=== PATIENT | female | born 1995 | race Caucasian/White ===

== ENCOUNTER 2016-12-03 10:18 | Emergency (ER) | payer OTHER ==
[~2016-12-03] VITALS: Ht 165.1 cm; Wt 75.5 kg
[~2016-12-03 10:18] MED LIST: IRON1TAB78 PO; PNV1TABL43 PO
[2016-12-03 10:21] VITALS: Ht 165.1 cm; Wt 75.5 kg
[2016-12-03] MEDS ORDERED: ONDANSETRON 4 MG INJ IV STA (10:58)
[2016-12-03] MEDS ORDERED: SOD CHLORIDE 0.9% 1,000 ML IV STA (10:58)
[2016-12-03] MEDS ORDERED: KETOROLAC 30 MG INJ IV STA (10:58)
[2016-12-03 11:38] LABS: ADD SCAN DIFF NO
[2016-12-03 11:39] LABS: BASOPHILS % 0.1 % (0.0-2.0); HEMATOCRIT 38.4 % (37.0-47.0); HEMOGLOBIN 12.7 g/dl (12.0-16.0); LYMPHOCYTES # 0.8 10^3/ul (0.8-2.9); LYMPHOCYTES % 7.6 % (15.0-51.0); MEAN CORPUSCULAR HEMOGLOBIN 29.3 pg (29.0-33.0); MEAN CORPUSCULAR HGB CONC 33.1 g/dl (32.0-37.0); MEAN CORPUSCULAR VOLUME 88.7 fl (82.0-101.0); MEAN PLATELET VOLUME 9.7 fl (7.4-10.4); MONOCYTE # 0.4 10^3/ul (0.3-0.9); MONOCYTES % 3.4 % (0.0-11.0); NEUTROPHIL # 9.3 10^3/ul (1.6-7.5); NEUTROPHILS % 88.5 % (39.0-77.0); PLATELET COUNT 296 10^3/UL (140-415); RED BLOOD COUNT 4.33 10^6/ul (4.20-5.40); WHITE BLOOD COUNT 10.5 10^3/ul (4.8-10.8)
[2016-12-03 11:49] LABS: ADD UMIC YES; URINE BILIRUBIN (Dip) NEGATIVE (NEGATIVE); URINE BLOOD (Dip) TRACE (NEGATIVE); URINE COLOR LT. YELLOW (YELLOW); URINE GLUCOSE (Dip) NEGATIVE (NEGATIVE); URINE KETONES (Dip) NEGATIVE (NEGATIVE); URINE LEUKOCYTE ESTERASE (Dip) NEGATIVE (NEGATIVE); URINE NITRITE (Dip) NEGATIVE (NEGATIVE); URINE TOTAL PROTEIN (Dip) NEGATIVE (NEGATIVE); URINE UROBILINOGEN (Dip) 0.2 E.U./dL (0.1-1.0)
[2016-12-03 11:52] LABS: ALBUMIN 4.5 g/dl (3.3-4.9)
[2016-12-03 11:53] LABS: POTASSIUM 3.3 mmol/L (3.5-5.1)
[2016-12-03 11:55] LABS: ALBUMIN/GLOBULIN RATIO 1.32; BILIRUBIN,INDIRECT 2.1 mg/dl (0-1.1); BILIRUBIN,TOTAL 2.1 mg/dl (0.2-1.3); CALCIUM 9.1 mg/dl (8.4-10.2); CREATININE 0.63 mg/dl (0.44-1.00); TOTAL PROTEIN 7.9 g/dl (6.1-8.1)
[2016-12-03 12:10] LABS: SQUAMOUS EPITHELIAL CELL,UR FEW; URINE RBCS 0-2 /HPF (0)
--- NOTE | 2016-12-03 12:28 | RADRPT ---
PROCEDURE: CT Abdomen and pelvis without contrast. CLINICAL INDICATION: Abdominal pain nausea and diarrhea. Fever for 1 day. TECHNIQUE: CT scan of the abdomen and pelvis with contrast was performed on a multidetector high-r esolution CT scan. . Coronal and sagittal reformatted images were obtained from the axial source i mages. Standard CT scan of the abdomen pelvis without contrast protocols were performed. The total exam CTDI equals 10.69 mGy and the total exam DLP equals 603.42 mGy-cm. One or more of the following dose reduction techniques were used: - Automated exposure control. - Adjustment of the mA and/or kV according to patient size. Use of iterative reconstruction technique. COMPARISON: None. FINDINGS: The liver is normal limits in size with diffuse mild inhomogeneous fatty infiltration. No focal hep atic lesions. The spleen pancreas adrenal glands and kidneys are normal in size configuration witho ut focal lesions. Negative for calcified renal calculi or hydronephrosis bilaterally. The gallblad clare is unremarkable and there is no evidence biliary ductal dilation. Urinary bladder is unremarkab le. The uterus and adnexa are unremarkable. The appendix is not visualized and there is no CT evidence of appendicitis. The stomach, small andrea l and large bowel are unremarkable. There is trace free fluid in the cul-de-sac. No other abdomina l or pelvic free fluid, free air or abscesses. No evidence of abdominopelvic lymphadenopathy. The aorta is unremarkable. The lung bases are unremarkable. There are no acute osseous findings are os teoblastic/osteolytic lesions. IMPRESSION: 1. Trace free fluid in the cul-de-sac with no other abdominal free fluid, free air, abscesses or ly mphadenopathy. 2. No evidence of calcified urinary calculi or obstructive uropathy. 3. Nonvisualization the appendix though there is no CT evidence of appendicitis or diverticulitis. 4. Hepatic fatty infiltration. RPTAT:AAJJ Physician Mayte Date Time Electronically viewed and signed by Physician Mayte on 12/03/2016 12:28 BM/
[2016-12-03] MEDS ORDERED: DICY10CA60 PO (13:05)
[2016-12-03] MEDS ORDERED: ACET500C5 PO (13:06)
--- NOTE | 2016-12-03 13:17 | ERD ---
ER Documentation Chief Complaint Date/Time DATE: 12/03/16 TIME: 13:13 Chief Complaint BACK PAIN,NAUSEA,ABDOMINAL PAIN,DIARRHEA. HPI Patient is a 21-year-old female past medical history of appendectomy who presents to the emergency department with nausea, diarrhea, abdominal pain and lower back pain. Patient states her symptoms started 1 day ago. Patient states pain originates in her lower back and radiates to her pelvic region. Patient describes the pain to be episodic. Patient states it is difficult for her to find position of comfort states that the pain is "crampy" in nature. Patient does report tactile fevers and chills. Patient denies taking any antipyretics. Patient does admit to nausea and vomiting. Patient also reports diarrhea. Patient denies any recent travel. Patient denies any recent antibiotic use. Patient denies any sick contacts. ROS All systems reviewed and are negative except as per history of present illness. Medications Home Meds Active Scripts Acetaminophen* (Tylophen*) 500 Mg Capsule, 1 CAP PO Q6H Y for PAIN AND OR ELEVATED TEMP, #20 CAP Prov:ESTEBAN FIGUEREDO PA-C 12/03/16 Dicyclomine Hcl* (Bentyl*) 10 Mg Capsule, 10 MG PO QID, #20 CAP Prov:ESTEBAN FIGUEREDO PA-C 12/03/16 Reported Medications Iron,Carbonyl/Vit C/Vit B12/Fa (IRON 100 PLUS TABLET) 1 Each Tablet, 1 EACH PO DAILY, #1 04/02/13 Vit/Fe Fumarate/Fa* ( Vitamin Tablet*) 1 Tab Tablet, 1 TAB PO 04/02/13 Allergies Allergies: Coded Allergies: No Known Drug Allergies (Verified Allergy, Unknown, 12/03/16) PMhx/Soc History of Surgery: Yes Anesthesia Reaction: No Hx Neurological Disorder: No Hx Respiratory Disorders: No Hx Cardiac Disorders: No Hx Psychiatric Problems: No Hx Miscellaneous Medical Probl: No Hx Alcohol Use: No Hx Substance Use: No Hx Tobacco Use: No Smoking Status: Never smoker Physical Exam Vitals Vital Signs Date Time Temp Pulse Resp B/P Pulse Ox O2 Delivery O2 Flow Rate FiO2 12/03/16 14:09 98.1 81 18 109/69 99 12/03/16 10:21 100.9 113 18 125/63 98 Physical Exam GENERAL: Well-developed, well-nourished female. Appears in no acute distress. HEAD: Normocephalic, atraumatic. No deformities or ecchymosis. EYE: Pupils equal, round, and reactive to light. EOMs intact. No conjunctival erythema. No eye discharge. ENT: External ear without any masses or tenderness. Auditory canals clear bilaterally. TM visualized bilaterally, non-erythematous, non-bulging. Nasal mucosa pink with no discharge. Oropharynx is pink without any tonsillar erythema or exudates. No uvula deviation. No kissing tonsils. NECK: Supple. No meningismus. Normal ROM of the neck. LUNG: Clear to auscultation bilaterally. No rhonchi, wheezing, rales or coarse breath sounds. HEART: Regular rate and rhythm. No murmurs, rubs or gallops. ABDOMEN: Soft and nondistended. Diffusely tender in all 4 quadrants. Positive bowel sounds in all four quadrants. No rebound tenderness, no guarding. (-) McBurney's point tenderness. No CVA tenderness. BACK: No midline tenderness. EXTREMITES: Equal pulses bilaterally. No peripheral clubbing, cyanosis or edema. No unilateral leg swelling. NEUROLOGIC: Alert and oriented to person, place and time. Moving all four extremities. 5/5 strength in all extremities. Normal speech. Steady gait. SKIN: Normal color. Warm and dry. No rashes or lesions. Result Diagram: 12/03/16 1125 12/03/16 1125 Results 24 hrs Laboratory Tests Test 12/03/16 11:15 12/03/16 11:25 Urine Color LT. YELLOW Urine Clarity CLEAR Urine pH 5.5 Urine Specific Gower 1.025 Urine Ketones NEGATIVE Urine Nitrite NEGATIVE Urine Bilirubin NEGATIVE Urine Urobilinogen 0.2 E.U./dL Urine Leukocyte Esterase NEGATIVE Urine Microscopic RBC 0-2/HPF Urine Microscopic WBC NONE SEEN/HPF Urine Squamous Epithelial Cells FEW Urine Hemoglobin TRACE Urine Glucose NEGATIVE% Urine Total Protein NEGATIVE White Blood Count 10.510^3/ul Red Blood Count 4.3310^6/ul Hemoglobin 12.7g/dl Hematocrit 38.4% Mean Corpuscular Volume 88.7fl Mean Corpuscular Hemoglobin 29.3pg Mean Corpuscular Hemoglobin Concent 33.1g/dl Red Cell Distribution Width 13.0% Platelet Count 57834^3/UL Mean Platelet Volume 9.7fl Neutrophils % 88.5% Lymphocytes % 7.6% Monocytes % 3.4% Eosinophils % 0.0% Basophils % 0.1% Nucleated Red Blood Cells % 0.0/100WBC Neutrophils # 9.310^3/ul Lymphocytes # 0.810^3/ul Monocytes # 0.410^3/ul Eosinophils # 0.010^3/ul Basophils # 0.010^3/ul Nucleated Red Blood Cells # 0.010^3/ul Sodium Level 137mmol/L Potassium Level 3.3mmol/L Chloride Level 99mmol/L Carbon Dioxide Level 26mmol/L Anion Gap 15 Blood Urea Nitrogen 10mg/dl Creatinine 0.63mg/dl Glucose Level 94mg/dl Calcium Level 9.1mg/dl Total Bilirubin 2.1mg/dl Direct Bilirubin 0.00mg/dl Indirect Bilirubin 2.1mg/dl Aspartate Amino Transf (AST/SGOT) 15IU/L Alanine Aminotransferase (ALT/SGPT) 17IU/L Alkaline Phosphatase 68IU/L Total Protein 7.9g/dl Albumin 4.5g/dl Globulin 3.40g/dl Albumin/Globulin Ratio 1.32 Lipase 39U/L Current Medications Medications (Trade) Dose Ordered Sig/Aiden Route PRN Reason Start Time Stop Time Status Last Admin Dose Admin Sodium Chloride (NS) 1,000 ml @ 1,000 mls/hr Q1H STAT IV 12/03/16 10:58 12/03/16 11:57 DC 12/03/16 11:28 Ondansetron HCl (Zofran Inj) 4 mg ONCE STAT IV 12/03/16 10:58 12/03/16 11:01 DC 12/03/16 11:29 Ketorolac Tromethamine (Toradol) 30 mg ONCE STAT IV 12/03/16 10:58 12/03/16 11:01 DC 12/03/16 11:29 Procedures/MDM ED COURSE: The patient was stable throughout ED course. I kept the patient and/or family informed of laboratory and diagnostic imaging results throughout the ED course. DIAGNOSTIC IMAGING: Read by radiologist. DIAGNOSTIC IMAGING REPORT Patient: BELKIS NAJERA : 1995 Age: 21 Sex: F MR #: [id number] DOS: 12/03/16 1058 Ordering MD: ESTEBAN FIGUEREDO PA-C Location: [facility] Room/Bed: PROCEDURE: CT Abdomen and pelvis without contrast. CLINICAL INDICATION: Abdominal pain nausea and diarrhea. Fever for 1 day. TECHNIQUE: CT scan of the abdomen and pelvis with contrast was performed on a multidetector high-resolution CT scan. . Coronal and sagittal reformatted images were obtained from the axial source images. Standard CT scan of the abdomen pelvis without contrast protocols were performed. The total exam CTDI equals 10.69 mGy and the total exam DLP equals 603.42 mGy- cm. One or more of the following dose reduction techniques were used: - Automated exposure control. - Adjustment of the mA and/or kV according to patient size. Use of iterative reconstruction technique. COMPARISON: None. FINDINGS: The liver is normal limits in size with diffuse mild inhomogeneous fatty infiltration. No focal hepatic lesions. The spleen pancreas adrenal glands and kidneys are normal in size configuration without focal lesions. Negative for calcified renal calculi or hydronephrosis bilaterally. The gallbladder is unremarkable and there is no evidence biliary ductal dilation. Urinary bladder is unremarkable. The uterus and adnexa are unremarkable. The appendix is not visualized and there is no CT evidence of appendicitis. The stomach, small bowel and large bowel are unremarkable. There is trace free fluid in the cul-de-sac. No other abdominal or pelvic free fluid, free air or abscesses. No evidence of abdominopelvic lymphadenopathy. The aorta is unremarkable. The lung bases are unremarkable. There are no acute osseous findings are osteoblastic/osteolytic lesions. IMPRESSION: 1. Trace free fluid in the cul-de-sac with no other abdominal free fluid, free air, abscesses or lymphadenopathy. 2. No evidence of calcified urinary calculi or obstructive uropathy. 3. Nonvisualization the appendix though there is no CT evidence of appendicitis or diverticulitis. 4. Hepatic fatty infiltration. RPTAT:AAJJ Physician Mayte Date Time Electronically viewed and signed by Physician Mayte on 12/03/2016 12:28 BM/ CC: BEA,JISSILLE PA-C PROCEDURES: None. MEDICATIONS GIVEN: IV fluids, Zofran, Toradol Patient tolerated medication well with no adverse reactions. Patient reported improvement in pain. MEDICAL DECISION MAKING: This is a 21-year-old female who presents with abdominal pain, nausea, vomiting and diarrhea. Vital signs were reviewed. Patient was febrile initial presentation with a temperature 100.9F. Patient was given Toradol here in the emergency department which did improve her pain and down trend her temperature. Patient was not hypoxic. CBC showed no evidence of systemic infection or severe anemia. CMP showed no evidence of electrolyte abnormalities, severe acidosis, alkalosis, renal failure, or liver disease. Lipase showed no evidence of acute pancreatitis. UA showed no evidence of acute infection or hematuria. Urine test was negative. At this time, patient's presentation is most consistent with generalized abdominal pain and diarrhea. I have a much lower clinical concern for acute coronary syndrome, AAA, mesenteric ischemia, lower lobe pneumonia, DKA, bowel perforation, bowel obstruction, cholecystitis, choledocholithiasis, pancreatitis , splenic rupture, diverticulitis, UTI, pyelonephritis, nephrolithiasis, appendicitis, constipation, , ectopic , PID, ovarian torsion or tubo-ovarian abscess. PRESCRIPTIONS: Bentyl, Tylenol DISCHARGE: At this time, patient is stable for discharge and outpatient management. I have instructed the patient to follow-up with his/her primary care physician in 1-2 days. I have instructed the patient to promptly return to the ER at any time for any new or worsening symptoms including increased pain, nausea, vomiting, diarrhea, fever, weakness or LOC. The patient and/or family expressed understanding of and agreement with this plan. All questions were answered. Home care instructions were provided. Departure Diagnosis: Primary Impression: Abdominal pain Abdominal location: unspecified location Qualified Code: R10.9 - Abdominal pain, unspecified location Additional Impression: Diarrhea Diarrhea type: unspecified type Qualified Code: R19.7 - Diarrhea, unspecified type Condition: Stable Patient Instructions: Abdominal Pain Referrals: [facility] YOU HAVE RECEIVED A MEDICAL SCREENING EXAM AND THE RESULTS INDICATE THAT YOU DO NOT HAVE A CONDITION THAT REQUIRES URGENT TREATMENT IN THE EMERGENCY DEPARTMENT. FURTHER EVALUATION AND TREATMENT OF YOUR CONDITION CAN WAIT UNTIL YOU ARE SEEN IN YOUR DOCTORS OFFICE WITHIN THE NEXT 1-2 DAYS. IT IS YOUR RESPONSIBILITY TO MAKE AN APPOINTMENT FOR FOLOW-UP CARE. IF YOU HAVE A PRIMARY DOCTOR --you should call your primary doctor and schedule an appointment IF YOU DO NOT HAVE A PRIMARY DOCTOR YOU CAN CALL OUR PHYSICIAN REFERRAL HOTLINE AT IF YOU CAN NOT AFFORD TO SEE A PHYSICIAN YOU CAN CHOSE FROM THE FOLLOWING [facility] [address] [facility] [address] [facility] [address] [facility] [address] [facility] [address] [facility]. [facility] [address] [facility]. [facility] YOU HAVE RECEIVED A MEDICAL SCREENING EXAM AND THE RESULTS INDICATE THAT YOU DO NOT HAVE A CONDITION THAT REQUIRES URGENT TREATMENT IN THE EMERGENCY DEPARTMENT. FURTHER EVALUATION AND TREATMENT OF YOUR CONDITION CAN WAIT UNTIL YOU ARE SEEN IN YOUR DOCTORS OFFICE WITHIN THE NEXT 1-2 DAYS. IT IS YOUR RESPONSIBILITY TO MAKE AN APPOINTMENT FOR FOLOW-UP CARE. IF YOU HAVE A PRIMARY DOCTOR --you should call your primary doctor and schedule and appointment IF YOU DO NOT HAVE A PRIMARY DOCTOR YOU CAN CALL OUR PHYSICIAN REFERRAL HOTLINE AT . IF YOU CAN NOT AFFORD TO SEE A PHYSICIAN YOU CAN CHOSE FROM THE FOLLOWING [facility] INSTITUTIONS: [facility] [address] [place] [address] [facility] [address] [place] [address] [facility] [address] [place] [address] Additional Instructions: Call your primary care doctor TOMORROW for an appointment during the next 1-2 days.See the doctor sooner or return here if your condition worsens before your appointment time. ESTEBAN FIGUEREDO PA-C Dec 03, 2016 13:17 ESTEBAN FIGUEREDO PA-C Dec 03, 2016 13:17
[2016-12-03 14:09] VITALS: BP 109/69; PULSE 81; RESP 18; TEMP 98.1
== END 2016-12-03 14:10 | disposition home or self-care (01) ==
LOC: FTE 10:18
DX: R10.84 Generalized abdominal pain (principal); R19.7 Diarrhea, unspecified; R11.2 Nausea with vomiting, unspecified
CPT/HCPCS: 74176; 80053; 81001; 83690; 85025; J1885; J2405; J7030; 36415; 81003; 96374; 96375

== ENCOUNTER 2017-01-05 10:19 | Emergency (ER) | payer MEDICAID, OTHER ==
[~2017-01-05] VITALS: Ht 165.1 cm; Wt 74.5 kg
[~2017-01-05 10:19] MED LIST changes: +ACET500C5 PO; +DICY10CA60 PO
[2017-01-05 10:48] VITALS: Ht 165.1 cm; Wt 74.5 kg
[2017-01-05] MEDS ORDERED: SOD CHLORIDE 0.9% 1,000 ML IV STA (11:17)
[2017-01-05] MEDS ORDERED: ONDANSETRON 4 MG INJ IV STA (11:17)
[2017-01-05 11:46] LABS: ADD SCAN DIFF NO
[2017-01-05 11:51] LABS: BASOPHILS % 0.2 % (0.0-2.0); EOSINOPHILS # 0.1 10^3/ul (0.0-0.5); EOSINOPHILS % 0.5 % (0.0-7.0); HEMOGLOBIN 13.3 g/dl (12.0-16.0); LYMPHOCYTES # 2.6 10^3/ul (0.8-2.9); LYMPHOCYTES % 24.5 % (15.0-51.0); MEAN CORPUSCULAR HEMOGLOBIN 29.5 pg (29.0-33.0); MEAN CORPUSCULAR HGB CONC 33.3 g/dl (32.0-37.0); MEAN CORPUSCULAR VOLUME 88.7 fl (82.0-101.0); MEAN PLATELET VOLUME 9.5 fl (7.4-10.4); MONOCYTE # 0.5 10^3/ul (0.3-0.9); MONOCYTES % 4.2 % (0.0-11.0); NEUTROPHIL # 7.5 10^3/ul (1.6-7.5); NEUTROPHILS % 70.2 % (39.0-77.0); PLATELET COUNT 378 10^3/UL (140-415); RED BLOOD COUNT 4.51 10^6/ul (4.20-5.40); RED CELL DISTRIBUTION WIDTH 13.2 % (11.5-14.5); WHITE BLOOD COUNT 10.7 10^3/ul (4.8-10.8)
[2017-01-05 12:03] LABS: ADD UMIC YES; URINE BILIRUBIN (Dip) NEGATIVE (NEGATIVE); URINE BLOOD (Dip) NEGATIVE (NEGATIVE); URINE COLOR YELLOW (YELLOW); URINE GLUCOSE (Dip) NEGATIVE (NEGATIVE); URINE KETONES (Dip) TRACE (NEGATIVE); URINE LEUKOCYTE ESTERASE (Dip) NEGATIVE (NEGATIVE); URINE NITRITE (Dip) NEGATIVE (NEGATIVE); URINE TOTAL PROTEIN (Dip) TRACE (NEGATIVE); URINE UROBILINOGEN (Dip) 0.2 E.U./dL (0.1-1.0)
[2017-01-05 12:11] LABS: ALBUMIN 4.8 g/dl (3.3-4.9); POTASSIUM 3.4 mmol/L (3.5-5.1)
[2017-01-05 12:13] LABS: BILIRUBIN,INDIRECT 1.2 mg/dl (0-1.1); BILIRUBIN,TOTAL 1.2 mg/dl (0.2-1.3); CREATININE 0.57 mg/dl (0.44-1.00)
[2017-01-05 12:14] LABS: ALBUMIN/GLOBULIN RATIO 1.26; CALCIUM 9.5 mg/dl (8.4-10.2); TOTAL PROTEIN 8.6 g/dl (6.1-8.1)
--- NOTE | 2017-01-05 12:16 | RADRPT ---
PROCEDURE: US OB. CLINICAL INDICATION: Vaginal bleeding TECHNIQUE: Transabdominal views of the pelvis are available for review. COMPARISON: No prior studies are available for comparison. FINDINGS: There is a single intrauterine gestation with the crown-rump length measuring 1.2 cm and the gestat ional sac measuring 2.5 cm, corresponding to a gestational age of 7 weeks and 3 days. The heart rate is noted at 166 bpm. The ovaries are not visualized. There is no free fluid. RPTAT: AA IMPRESSION: Single live intrauterine with an estimated gestational age of 7 weeks and 3 days, based on ultrasound measurements. JOYCELYN based on ultrasound measurements is 08/21/2017. .Owen Shoemaker MD, MD Date Time Electronically viewed and signed by .Owen Shoemaker MD, on 01/05/2017 12:15 .S/
[2017-01-05 12:47] LABS: URINE RBCS NONE SEEN /HPF (0)
--- NOTE | 2017-01-05 13:23 | ERD ---
ER Documentation Chief Complaint Date/Time DATE: 01/05/17 TIME: 13:19 Chief Complaint 8 wks preg; vomiting since monday; no pain, no vag bleed HPI 21-year-old female approximately 8 weeks complaining of nausea and vomiting since Monday. She denies any abdominal pain or vaginal bleeding. She denies any dysuria hematuria or increased urinary frequency. She has been taking Reglan for nausea but she does not like how it makes her feel and she would like to try something different. Denies fever. ROS All systems reviewed and are negative except as per history of present illness. Medications Home Meds Active Scripts Acetaminophen* (Tylophen*) 500 Mg Capsule, 1 CAP PO Q6H Y for PAIN AND OR ELEVATED TEMP, #20 CAP Prov:ESTEBAN FIGUEREDO PA-C 12/03/16 Dicyclomine Hcl* (Bentyl*) 10 Mg Capsule, 10 MG PO QID, #20 CAP Prov:ESTEBAN FIGUEREDO PA-C 12/03/16 Reported Medications Iron,Carbonyl/Vit C/Vit B12/Fa (IRON 100 PLUS TABLET) 1 Each Tablet, 1 EACH PO DAILY, #1 04/02/13 Vit/Fe Fumarate/Fa* ( Vitamin Tablet*) 1 Tab Tablet, 1 TAB PO 04/02/13 Allergies Allergies: Coded Allergies: No Known Drug Allergies (Verified Allergy, Unknown, 12/03/16) PMhx/Soc Medical and Surgical Hx: pt denies Medical Hx History of Surgery: Yes (appendix) Anesthesia Reaction: No Hx Neurological Disorder: No Hx Respiratory Disorders: No Hx Cardiac Disorders: No Hx Psychiatric Problems: No Hx Miscellaneous Medical Probl: No Hx Alcohol Use: No Hx Substance Use: No Hx Tobacco Use: No Smoking Status: Never smoker FmHx Family History: No diabetes Physical Exam Vitals Vital Signs Date Time Temp Pulse Resp B/P Pulse Ox O2 Delivery O2 Flow Rate FiO2 01/05/17 10:48 98.7 79 18 109/57 97 Physical Exam General: well developed, well nourished, alert, nontoxic, no distress Head: normocephalic, atraumatic Neck: Supple, nontender, no lymphadenopathy, no midline tenderness Respiratory: Clear to auscaultation bilaterally, speaks in full sentences, no use of accesory muscles or labored breathing, no rales, ronchi, or wheezing Cardiovascular: RRR, No murmurs GI: soft, non tender, non distended, negative murphys sign, negative mcburneys point tenderness, no cva tenderness bilaterally, no rebound or guarding Back: no midline tenderness, no step offs or bony abnormalities, sensation to light touch in tact Result Diagram: 01/05/17 1130 01/05/17 1130 Results 24 hrs Laboratory Tests Test 01/05/17 11:25 01/05/17 11:30 Urine Color YELLOW Urine Clarity CLEAR Urine pH 6.0 Urine Specific [place] >=1.030 Urine Ketones TRACE Urine Nitrite NEGATIVE Urine Bilirubin NEGATIVE Urine Urobilinogen 0.2 E.U./dL Urine Leukocyte Esterase NEGATIVE Urine Microscopic RBC NONE SEEN/HPF Urine Microscopic WBC 0-2/HPF Urine Hemoglobin NEGATIVE Urine Glucose NEGATIVE% Urine Total Protein TRACE White Blood Count 10.710^3/ul Red Blood Count 4.5110^6/ul Hemoglobin 13.3g/dl Hematocrit 40.0% Mean Corpuscular Volume 88.7fl Mean Corpuscular Hemoglobin 29.5pg Mean Corpuscular Hemoglobin Concent 33.3g/dl Red Cell Distribution Width 13.2% Platelet Count 01564^3/UL Mean Platelet Volume 9.5fl Neutrophils % 70.2% Lymphocytes % 24.5% Monocytes % 4.2% Eosinophils % 0.5% Basophils % 0.2% Nucleated Red Blood Cells % 0.0/100WBC Neutrophils # 7.510^3/ul Lymphocytes # 2.610^3/ul Monocytes # 0.510^3/ul Eosinophils # 0.110^3/ul Basophils # 0.010^3/ul Nucleated Red Blood Cells # 0.010^3/ul Sodium Level 140mmol/L Potassium Level 3.4mmol/L Chloride Level 99mmol/L Carbon Dioxide Level 24mmol/L Anion Gap 20 Blood Urea Nitrogen 7mg/dl Creatinine 0.57mg/dl Glucose Level 81mg/dl Calcium Level 9.5mg/dl Total Bilirubin 1.2mg/dl Direct Bilirubin 0.00mg/dl Indirect Bilirubin 1.2mg/dl Aspartate Amino Transf (AST/SGOT) 19IU/L Alanine Aminotransferase (ALT/SGPT) 21IU/L Alkaline Phosphatase 66IU/L Total Protein 8.6g/dl Albumin 4.8g/dl Globulin 3.80g/dl Albumin/Globulin Ratio 1.26 Beta HCG, Quantitative 689017.0mIU/ml Current Medications Medications (Trade) Dose Ordered Sig/Aiden Route PRN Reason Start Time Stop Time Status Last Admin Dose Admin Sodium Chloride (NS) 1,000 ml @ 1,000 mls/hr Q1H STAT IV 01/05/17 11:17 01/05/17 12:16 DC 01/05/17 11:35 Ondansetron HCl (Zofran Inj) 4 mg ONCE STAT IV 01/05/17 11:17 01/05/17 11:19 DC 01/05/17 11:35 Procedures/MDM 21-year-old female who is complaining of nausea and vomiting. Vitals are normal and exam is normal. She has no abdominal pain or tenderness on exam. Ultrasound shows single IUp. No evidence of ectopic. She felt much better after getting IV fluids and Zofran. She requested a Zofran prescription was to give her a small amount. She says she will follow up with OB tomorrow. Recommended this patient follow up with her primary care doctor within 48 hours or return to the emergency room for any worsening of symptoms. However this time I do believe there is suitable for outpatient management. I answered all their questions and they agreed with the plan and were discharged home. Departure Diagnosis: Primary Impression: Nausea and vomiting during Condition: Stable ABHAY KAUR PA-C January 05, 2017 13:23
[2017-01-05] MEDS ORDERED: ONDA4TAB14 PO (13:24)
[2017-01-05 13:31] VITALS: BP 107/63; PULSE 85; RESP 18; TEMP 98.2
== END 2017-01-05 13:33 | disposition home or self-care (01) ==
LOC: FTE 10:19
DX: O21.9 Vomiting of pregnancy, unspecified (principal); Z3A.01 Less than 8 weeks gestation of pregnancy
CPT/HCPCS: 76801; 80053; 81001; 81003; 84702; 85025; J2405; J7030; 36415; 96374

== ENCOUNTER 2017-01-17 08:45 | Emergency (ER) | payer MEDICAID ==
[~2017-01-17] VITALS: Ht 157.5 cm; Wt 78.0 kg
[~2017-01-17 08:45] MED LIST changes: +ONDA4TAB14 PO
[2017-01-17 08:52] VITALS: Ht 157.5 cm; Wt 78.0 kg
[2017-01-17] MEDS ORDERED: ACETAMINOPHEN 325 MG TAB PO STA (09:14)
[2017-01-17] MEDS ORDERED: SOD CHLORIDE 0.9% 1,000 ML IV STA (09:14)
[2017-01-17] MEDS ORDERED: METOCLOPRAMIDE 10 MG INJ IV ONE (09:30)
[2017-01-17 09:48] LABS: ADD SCAN DIFF NO
[2017-01-17 09:51] LABS: BASOPHILS % 0.3 % (0.0-2.0); EOSINOPHILS # 0.2 10^3/ul (0.0-0.5); EOSINOPHILS % 2.3 % (0.0-7.0); HEMATOCRIT 36.7 % (37.0-47.0); HEMOGLOBIN 12.2 g/dl (12.0-16.0); LYMPHOCYTES # 1.6 10^3/ul (0.8-2.9); LYMPHOCYTES % 15.8 % (15.0-51.0); MEAN CORPUSCULAR HEMOGLOBIN 29.2 pg (29.0-33.0); MEAN CORPUSCULAR HGB CONC 33.2 g/dl (32.0-37.0); MEAN CORPUSCULAR VOLUME 87.8 fl (82.0-101.0); MEAN PLATELET VOLUME 9.9 fl (7.4-10.4); MONOCYTE # 0.5 10^3/ul (0.3-0.9); MONOCYTES % 5.3 % (0.0-11.0); NEUTROPHIL # 7.6 10^3/ul (1.6-7.5); PLATELET COUNT 297 10^3/UL (140-415); RED BLOOD COUNT 4.18 10^6/ul (4.20-5.40); RED CELL DISTRIBUTION WIDTH 13.2 % (11.5-14.5)
[2017-01-17 09:53] LABS: ADD UMIC YES; URINE BILIRUBIN (Dip) 1+ (NEGATIVE); URINE BLOOD (Dip) TRACE (NEGATIVE); URINE COLOR YELLOW (YELLOW); URINE GLUCOSE (Dip) NEGATIVE (NEGATIVE); URINE KETONES (Dip) 40 (NEGATIVE); URINE LEUKOCYTE ESTERASE (Dip) NEGATIVE (NEGATIVE); URINE NITRITE (Dip) NEGATIVE (NEGATIVE); URINE TOTAL PROTEIN (Dip) TRACE (NEGATIVE); URINE UROBILINOGEN (Dip) 1.0 E.U./dL (0.1-1.0)
--- NOTE | 2017-01-17 10:02 | RADRPT ---
PROCEDURE: US OB. CLINICAL INDICATION: Pain, vomiting TECHNIQUE: Transabdominal views of the pelvis are available for review. COMPARISON: 01/05/2017 FINDINGS: There is a single intrauterine gestation with the crown-rump length measuring 2.9 cm, corresponding to a gestational age of 9 weeks and 5 days. The heart rate is noted at 179 bpm. The ovaries are normal in size and echogenicity. Normal Doppler flow is identified in both ovaries. The right ovary measures 3.2 x 1.6 x 1.9 cm. The left ovary measures 2.9 x 1.5 x 2.2 cm. There is no free fluid. RPTAT: AA IMPRESSION: Single live intrauterine with an estimated gestational age of 9 weeks and 5 days, based on ultrasound measurements. .Owen Shoemaker MD, Date Time Electronically viewed and signed by .Owen Shoemaker MD, on 01/17/2017 10:02 .S/
[2017-01-17 10:14] LABS: BACTERIA,URINE FEW; ICTOTEST NEGATIVE (NEGATIVE)
[2017-01-17 10:15] LABS: ALBUMIN 4.1 g/dl (3.3-4.9); ALBUMIN/GLOBULIN RATIO 1.17; BILIRUBIN,INDIRECT 1.2 mg/dl (0-1.1); BILIRUBIN,TOTAL 1.2 mg/dl (0.2-1.3); CALCIUM 9.3 mg/dl (8.4-10.2); CREATININE 0.55 mg/dl (0.44-1.00); POTASSIUM 3.5 mmol/L (3.5-5.1); TOTAL PROTEIN 7.6 g/dl (6.1-8.1)
[2017-01-17] MEDS ORDERED: METO10TA92 PO (11:45)
[2017-01-17] MEDS ORDERED: ACET325T33 PO (11:46)
[2017-01-17 11:54] VITALS: BP 107/65; PULSE 72; RESP 18; TEMP 97.9
--- NOTE | 2017-01-17 13:16 | ERD ---
ER Documentation Chief Complaint Date/Time DATE: 01/17/17 TIME: 13:09 Chief Complaint flu like symptoms since monday, 6 weeks HPI 21 year old female with no significant past medical history is currently and is a . States that she has been vomiting ever since the start of her . Reports that her last menses was on November 06, 2016. Reports that she has had a few episodes of daily nonbilious nonbloody vomiting. States that she started to have a cough and slight fever 3 days ago that is dry. Denies any abdominal pain, chest pain, shortness of breath, wheezing, fever, chills, diarrhea, constipation, vaginal bleeding, vaginal discharge. ROS All systems reviewed and are negative except as per history of present illness. Medications Home Meds Active Scripts Acetaminophen* (Tylenol*) 325 Mg Tablet, 1 TAB PO Q6 Y for PAIN AND OR ELEVATED TEMP, #20 TAB Prov:KEM TOLEDO PA-C 01/17/17 Metoclopramide* (Reglan*) 10 Mg Tablet, 10 MG PO Q6 Y for NAUSEA AND/OR VOMITING , #10 TAB Prov:KEM TOLEDO PA-C 01/17/17 Ondansetron (Ondansetron Odt) 4 Mg Tab.rapdis, 4 MG PO Q6H Y for NAUSEA AND/OR VOMITING, #20 TAB Prov:ABHAY KAUR PA-C 01/05/17 Acetaminophen* (Tylophen*) 500 Mg Capsule, 1 CAP PO Q6H Y for PAIN AND OR ELEVATED TEMP, #20 CAP Prov:ESTEBAN FIGUEREDO PA-C 12/03/16 Dicyclomine Hcl* (Bentyl*) 10 Mg Capsule, 10 MG PO QID, #20 CAP Prov:ESTEBAN FIGUEREDO PA-C 12/03/16 Reported Medications Iron,Carbonyl/Vit C/Vit B12/Fa (IRON 100 PLUS TABLET) 1 Each Tablet, 1 EACH PO DAILY, #1 04/02/13 Vit/Fe Fumarate/Fa* ( Vitamin Tablet*) 1 Tab Tablet, 1 TAB PO 04/02/13 Allergies Allergies: Coded Allergies: No Known Drug Allergies (Verified Allergy, Unknown, 12/03/16) PMhx/Soc History of Surgery: Yes (appendix) Anesthesia Reaction: No Hx Neurological Disorder: No Hx Respiratory Disorders: No Hx Cardiac Disorders: No Hx Psychiatric Problems: No Hx Miscellaneous Medical Probl: No Hx Alcohol Use: No Hx Substance Use: No Hx Tobacco Use: No Physical Exam Vitals Vital Signs Date Time Temp Pulse Resp B/P Pulse Ox O2 Delivery O2 Flow Rate FiO2 01/17/17 11:54 97.9 72 18 107/65 100 Room Air 01/17/17 08:52 98.2 98 20 120/68 99 Physical Exam Const: [id number], well-nourished. In no acute distress. Head: Atraumatic, normocephalic Eyes: Normal Conjunctiva without injection. No purulent discharge. ENT: Normal external ear, nose. Moist oropharynx without tonsillar exudates. Non -erythematous pharynx. Uvula midline. No drooling. No trismus. Neck: No cervical midline tenderness. Full range of motion. No meningismus. No cervical lymphadenopathy. No JVD. Resp: Clear to auscultation bilaterally. No wheezing, rhonchi, rales, or crackles. No accessory muscle use. No retractions. Cardio: Regular rate and rhythm. No murmurs, rubs or gallops. Abd: Soft, nontender, non distended. Normal bowel sounds. No palpable masses. No rebound tenderness. No guarding. Negative McBurney's point. Negative psoas sign. Negative obturator sign. Skin: No petechiae or rashes Back: No midline tenderness. No CVA tenderness. Ext: No cyanosis, or edema. Neur: Awake and alert. Normal gait. Normal coordination. Psych: Normal Mood and Affect Result Diagram: 01/17/1793401/17/17 0935 Results 24 hrs Laboratory Tests Test 01/17/17 09:21 01/17/17 09:35 Urine Color YELLOW Urine Clarity CLEAR Urine pH 6.0 Urine Specific [place] 1.025 Urine Ketones 40 Urine Nitrite NEGATIVE Urine Bilirubin 1+ Urine Ictotest NEGATIVE Urine Urobilinogen 1.0 E.U./dL Urine Leukocyte Esterase NEGATIVE Urine Microscopic RBC 2-5/HPF Urine Microscopic WBC 2-5/HPF Urine Epithelial Cells FEW Urine Bacteria FEW Urine Hemoglobin TRACE Urine Glucose NEGATIVE% Urine Total Protein TRACE White Blood Count 10.010^3/ul Red Blood Count 4.1810^6/ul Hemoglobin 12.2g/dl Hematocrit 36.7% Mean Corpuscular Volume 87.8fl Mean Corpuscular Hemoglobin 29.2pg Mean Corpuscular Hemoglobin Concent 33.2g/dl Red Cell Distribution Width 13.2% Platelet Count 05125^3/UL Mean Platelet Volume 9.9fl Neutrophils % 76.0% Lymphocytes % 15.8% Monocytes % 5.3% Eosinophils % 2.3% Basophils % 0.3% Nucleated Red Blood Cells % 0.0/100WBC Neutrophils # 7.610^3/ul Lymphocytes # 1.610^3/ul Monocytes # 0.510^3/ul Eosinophils # 0.210^3/ul Basophils # 0.010^3/ul Nucleated Red Blood Cells # 0.010^3/ul Sodium Level 134mmol/L Potassium Level 3.5mmol/L Chloride Level 103mmol/L Carbon Dioxide Level 25mmol/L Anion Gap 10 Blood Urea Nitrogen 7mg/dl Creatinine 0.55mg/dl Glucose Level 82mg/dl Calcium Level 9.3mg/dl Total Bilirubin 1.2mg/dl Direct Bilirubin 0.00mg/dl Indirect Bilirubin 1.2mg/dl Aspartate Amino Transf (AST/SGOT) 22IU/L Alanine Aminotransferase (ALT/SGPT) 41IU/L Alkaline Phosphatase 58IU/L Total Protein 7.6g/dl Albumin 4.1g/dl Globulin 3.50g/dl Albumin/Globulin Ratio 1.17 Beta HCG, Quantitative 39855.0mIU/ml Current Medications Medications (Trade) Dose Ordered Sig/Aiden Route PRN Reason Start Time Stop Time Status Last Admin Dose Admin Sodium Chloride (NS) 1,000 ml @ 1,000 mls/hr Q1H STAT IV 01/17/17 09:14 01/17/17 10:13 DC 01/17/17 09:52 Acetaminophen (Tylenol Tab) 650 mg ONCE STAT PO 01/17/17 09:14 01/17/17 09:16 DC 01/17/17 09:52 Metoclopramide HCl (Reglan) 10 mg ONCE ONCE IV 01/17/17 09:30 01/17/17 09:31 DC 01/17/17 09:52 Procedures/MDM This is a 21-year-old female patient who is a presents to the ED complaining of hyperemesis during her as well as a dry cough that started 3 days ago. Patient is afebrile nontoxic appearing. Patient has normal vital signs. An ultrasound, beta-hCG, CBC, type and RH, UA was ordered to evaluate patient. CBC: No evidence of severe infection or anemia Urine: No elevation in nitrites, leukocyte esterase, hematuria. No evidence of UTI Rh: O positive No indication for Rhogam at this time. beta Hc PROCEDURE: US OB. CLINICAL INDICATION: Pain, vomiting TECHNIQUE: Transabdominal views of the pelvis are available for review. COMPARISON: 01/05/2017 FINDINGS: There is a single intrauterine gestation with the crown-rump length measuring 2.9 cm, corresponding to a gestational age of 9 weeks and 5 days. The heart rate is noted at 179 bpm. The ovaries are normal in size and echogenicity. Normal Doppler flow is identified in both ovaries. The right ovary measures 3.2 x 1.6 x 1.9 cm. The left ovary measures 2.9 x 1.5 x 2.2 cm. There is no free fluid. RPTAT: AA IMPRESSION: Single live intrauterine with an estimated gestational age of 9 weeks and 5 days, based on ultrasound measurements. Patient's bleeding symptoms have stabilized while in the department. Patient has a single live intrauterine estimated gestational age 9 weeks and 5 days. Low suspicion for symptomatic anemia, ectopic , sepsis, PID, appendicitis, ovarian torsion, tubo-ovarian abscess, surgical abdomen, or other emergent conditions. Patient was educated that there is a risk for threatened . Patient to follow up with [facility] in 2 days for further evaluation and treatment. Patient is to return sooner to the ED for any worsening symptoms. Patient's questions were answered. Patient understood and agreed with discharge plan. Departure Diagnosis: Primary Impression: Hyperemesis of Additional Impression: Cough Condition: Stable Patient Instructions: : Your First Trimester Changes, Hyperemesis Gravidarum, Uri, Viral, No Abx (Adult) Referrals: COMMUNITY CLINICS YOU HAVE RECEIVED A MEDICAL SCREENING EXAM AND THE RESULTS INDICATE THAT YOU DO NOT HAVE A CONDITION THAT REQUIRES URGENT TREATMENT IN THE EMERGENCY DEPARTMENT. FURTHER EVALUATION AND TREATMENT OF YOUR CONDITION CAN WAIT UNTIL YOU ARE SEEN IN YOUR DOCTORS OFFICE WITHIN THE NEXT 1-2 DAYS. IT IS YOUR RESPONSIBILITY TO MAKE AN APPOINTMENT FOR FOLOW-UP CARE. IF YOU HAVE A PRIMARY DOCTOR --you should call your primary doctor and schedule an appointment IF YOU DO NOT HAVE A PRIMARY DOCTOR YOU CAN CALL OUR PHYSICIAN REFERRAL HOTLINE AT IF YOU CAN NOT AFFORD TO SEE A PHYSICIAN YOU CAN CHOSE FROM THE FOLLOWING [facility] [address] [facility] [address] [facility] [address] [facility] [address] [facility] [address] [facility]. [facility] [address] [facility]. [facility] YOU HAVE RECEIVED A MEDICAL SCREENING EXAM AND THE RESULTS INDICATE THAT YOU DO NOT HAVE A CONDITION THAT REQUIRES URGENT TREATMENT IN THE EMERGENCY DEPARTMENT. FURTHER EVALUATION AND TREATMENT OF YOUR CONDITION CAN WAIT UNTIL YOU ARE SEEN IN YOUR DOCTORS OFFICE WITHIN THE NEXT 1-2 DAYS. IT IS YOUR RESPONSIBILITY TO MAKE AN APPOINTMENT FOR FOLOW-UP CARE. IF YOU HAVE A PRIMARY DOCTOR --you should call your primary doctor and schedule and appointment IF YOU DO NOT HAVE A PRIMARY DOCTOR YOU CAN CALL OUR PHYSICIAN REFERRAL HOTLINE AT . IF YOU CAN NOT AFFORD TO SEE A PHYSICIAN YOU CAN CHOSE FROM THE FOLLOWING [facility]: [facility] [address] [place] [address] [facility] [address] [place] [address] [facility] [address] [place] [address] [facility] URGENT [facility]/SPECIALTIES Additional Instructions: Call your primary care doctor and [facility] TOMORROW for an appointment during the next 2 days.See the doctor sooner or return here if your condition worsens before your appointment time. KEM TOLEDO PA-C January 17, 2017 13:16
== END 2017-01-17 12:06 | disposition home or self-care (01) ==
LOC: FTE 08:45
DX: O21.0 Mild hyperemesis gravidarum (principal); R05 Cough; Z3A.09 9 weeks gestation of pregnancy
CPT/HCPCS: 36415; 76801; 80053; 81001; 84702; 85025; 86900; 86901; 96374; J2765; J7030; Z7502; Z7610

== ENCOUNTER 2017-01-30 12:20 | Emergency (ER) | payer MEDICAID ==
[~2017-01-30] VITALS: Ht 165.1 cm; Wt 71.5 kg
[~2017-01-30 12:20] MED LIST changes: +ACET325T33 PO; +METO10TA92 PO
[2017-01-30 12:39] VITALS: Ht 165.1 cm; Wt 71.5 kg
[2017-01-30] MEDS ORDERED: ACETAMINOPHEN 325 MG TAB PO ONE (13:30)
[2017-01-30 14:00] LABS: ADD UMIC NO; UR BILIRUBIN (Dip) NEGATIVE (NEGATIVE); UR BLOOD (Dip) NEGATIVE (NEGATIVE); UR CLARITY CLEAR (CLEAR); UR COLOR LT. YELLOW (YELLOW); UR GLUCOSE (Dip) NEGATIVE (NEGATIVE); UR KETONES (Dip) TRACE (NEGATIVE); UR LEUKOCYTE ESTERASE (Dip) NEGATIVE (NEGATIVE); UR NITRITE (Dip) NEGATIVE (NEGATIVE); UR TOTAL PROTEIN (Dip) NEGATIVE (NEGATIVE); UR UROBILINOGEN (Dip) 0.2 E.U./dL (0.1-1.0)
--- NOTE | 2017-01-30 14:13 | RADRPT ---
PROCEDURE: US OB. CLINICAL INDICATION: Back pain, status post fall TECHNIQUE: Transabdominal and transvaginal views of the pelvis are available for review. COMPARISON: 01/17/2017 FINDINGS: The cervix measures 6.1 cm in length. There is a single intrauterine gestation with the crown-rump length measuring 4.9 cm and the gestati onal sac measures 4.8 cm, corresponding to a gestational age of 11 weeks and 2 days. The heart rate is noted at 165 bpm. The right ovary measures 2.3 x 1.4 x 1.7 cm. The left ovary was not visualized. There is no free fluid. RPTAT: AA IMPRESSION: Single live intrauterine with an estimated gestational age of 11 weeks and 2 days, based o n ultrasound measurements. JOYCELYN based on ultrasound measurements is 08/19/2017. .Owen Shoemaker MD, Date Time Electronically viewed and signed by .Owen Shoemaker MD, on 01/30/2017 14:13 .S/
[2017-01-30] MEDS ORDERED: ACET325T33 PO (15:03)
[2017-01-30 15:15] VITALS: BP 110/75; PULSE 83; RESP 20; TEMP 98
--- NOTE | 2017-01-30 20:00 | ERD ---
ER Documentation Chief Complaint Date/Time DATE: 01/30/17 TIME: 19:58 Chief Complaint BACK PAIN S/P FALL TODAY, 11 WEEKS NO VAG BLEED HPI 21-year-old female patient who is a presents to the ED complaining of accidentally falling earlier today. Reports that she slipped on a step on the stairway. States that she hit the right and left side of her buttocks. Denies any saddle anesthesia, numbness or tingling, urine or bowel incontinence, urinary retention. Denies any chest pain, shortness of breath, abdominal pain, nausea, vomiting, diarrhea, melena, hematemesis. Patient's last menses was on November 06, 2016. Patient denies any vaginal bleeding, vaginal discharge. ROS All systems reviewed and are negative except as per history of present illness. Medications Home Meds Active Scripts Acetaminophen* (Tylenol*) 325 Mg Tablet, 2 TAB PO Q8 Y for PAIN AND OR ELEVATED TEMP, #20 TAB Prov:KEM TOLEDO PA-C 01/30/17 Acetaminophen* (Tylenol*) 325 Mg Tablet, 1 TAB PO Q6 Y for PAIN AND OR ELEVATED TEMP, #20 TAB Prov:KEM TOLEDO PA-C 01/17/17 Metoclopramide* (Reglan*) 10 Mg Tablet, 10 MG PO Q6 Y for NAUSEA AND/OR VOMITING , #10 TAB Prov:KEM TOLEDO PA-C 01/17/17 Ondansetron (Ondansetron Odt) 4 Mg Tab.rapdis, 4 MG PO Q6H Y for NAUSEA AND/OR VOMITING, #20 TAB Prov:ABHAY KAUR PA-C 01/05/17 Acetaminophen* (Tylophen*) 500 Mg Capsule, 1 CAP PO Q6H Y for PAIN AND OR ELEVATED TEMP, #20 CAP Prov:ESTEBAN FIGUEREDO PA-C 12/03/16 Dicyclomine Hcl* (Bentyl*) 10 Mg Capsule, 10 MG PO QID, #20 CAP Prov:ESTEBAN FIGUEREDO PA-C 12/03/16 Reported Medications Iron,Carbonyl/Vit C/Vit B12/Fa (IRON 100 PLUS TABLET) 1 Each Tablet, 1 EACH PO DAILY, #1 04/02/13 Vit/Fe Fumarate/Fa* ( Vitamin Tablet*) 1 Tab Tablet, 1 TAB PO 04/02/13 Allergies Allergies: Coded Allergies: No Known Drug Allergies (Verified Allergy, Unknown, 12/03/16) PMhx/Soc History of Surgery: Yes (appendix) Anesthesia Reaction: No Hx Neurological Disorder: No Hx Respiratory Disorders: No Hx Cardiac Disorders: No Hx Psychiatric Problems: No Hx Miscellaneous Medical Probl: No Hx Alcohol Use: No Hx Substance Use: No Hx Tobacco Use: No Physical Exam Vitals Vital Signs Date Time Temp Pulse Resp B/P Pulse Ox O2 Delivery O2 Flow Rate FiO2 01/30/17 15:15 98.0 83 20 110/75 97 Room Air 01/30/17 12:39 98.9 81 18 105/61 96 Physical Exam Const: [id number]-[id number], well-nourished. In no acute distress. Head: Atraumatic, normocephalic Eyes: Normal Conjunctiva without injection. No purulent discharge. ENT: Normal external ear, nose. Moist oropharynx without tonsillar exudates. Non -erythematous pharynx. Uvula midline. No drooling. No trismus. Neck: No cervical midline tenderness. Full range of motion. No meningismus. No cervical lymphadenopathy. No JVD. Resp: Clear to auscultation bilaterally. No wheezing, rhonchi, rales, or crackles. No accessory muscle use. No retractions. Cardio: Regular rate and rhythm. No murmurs, rubs or gallops. Abd: Soft, nontender, non distended. Normal bowel sounds. No palpable masses. No rebound tenderness. No guarding. Negative McBurney's point. Negative psoas sign. Negative obturator sign. Skin: No petechiae or rashes Back: No midline tenderness. No CVA tenderness. Ext: No cyanosis, or edema. Neur: Awake and alert. Normal gait. Normal coordination. Psych: Normal Mood and Affect Results 24 hrs Laboratory Tests Test 01/30/17 13:43 Urine Color LT. YELLOW Urine Clarity CLEAR Urine pH 6.0 Urine Specific [place] >=1.030 Urine Ketones TRACE Urine Nitrite NEGATIVE Urine Bilirubin NEGATIVE Urine Urobilinogen 0.2 E.U./dL Urine Leukocyte Esterase NEGATIVE Urine Hemoglobin NEGATIVE Urine Glucose NEGATIVE% Urine Total Protein NEGATIVE Current Medications Medications (Trade) Dose Ordered Sig/Aiden Route PRN Reason Start Time Stop Time Status Last Admin Dose Admin Acetaminophen (Tylenol Tab) 650 mg ONCE ONCE PO 01/30/17 13:30 01/30/17 13:31 DC 01/30/17 14:07 Procedures/MDM This is a 21-year-old female patient who is a presents to the ED complaining of back pain after a status post fall that occurred earlier yesterday. Patient is afebrile nontoxic appearing. Patient has normal vital signs. Ultrasound and urinalysis was ordered to further evaluate patient. Urinalysis shows no leukocyte esterase, hematuria, nitrite, PROCEDURE: US OB. CLINICAL INDICATION: Back pain, status post fall TECHNIQUE: Transabdominal and transvaginal views of the pelvis are available for review. COMPARISON: 01/17/2017 FINDINGS: The cervix measures 6.1 cm in length. There is a single intrauterine gestation with the crown-rump length measuring 4.9 cm and the gestational sac measures 4.8 cm, corresponding to a gestational age of 11 weeks and 2 days. The heart rate is noted at 165 bpm. The right ovary measures 2.3 x 1.4 x 1.7 cm. The left ovary was not visualized. There is no free fluid. RPTAT: AA IMPRESSION: Single live intrauterine with an estimated gestational age of 11 weeks and 2 days, based on ultrasound measurements. JOYCELYN based on ultrasound measurements is 08/19/2017. Patient has a single IUP 11 weeks and 2 days. Urinalysis shows trace ketones. No leukocyte esterase, hematuria or nitrite. Low suspicion for UTI, pyelonephritis, cauda equina, compression fracture, hip/pelvic fracture, malignancy, epidural abscess, symptomatic anemia, ectopic , sepsis, PID , appendicitis, ovarian torsion, tubo-ovarian abscess, surgical abdomen, or other emergent conditions. Patient was educated that there is a risk for threatened . Discharge medications: Tylenol Follow up with primary care physician in 1-2 days. Instructed patient to return to the ED sooner for any worsening symptoms. Patient's questions were answered. Patient understood and agreed with discharge plan. Patient discharged stable. Departure Diagnosis: Primary Impression: Back pain affecting Condition: Stable Patient Instructions: Back Pain During , Back Pain During : Moving Safely, Back Pain During : Positioning Yourself, Relieving Back Pain During : Wall Stretch, Body Bend Referrals: COMMUNITY CLINICS YOU HAVE RECEIVED A MEDICAL SCREENING EXAM AND THE RESULTS INDICATE THAT YOU DO NOT HAVE A CONDITION THAT REQUIRES URGENT TREATMENT IN THE EMERGENCY DEPARTMENT. FURTHER EVALUATION AND TREATMENT OF YOUR CONDITION CAN WAIT UNTIL YOU ARE SEEN IN YOUR DOCTORS OFFICE WITHIN THE NEXT 1-2 DAYS. IT IS YOUR RESPONSIBILITY TO MAKE AN APPOINTMENT FOR FOLOW-UP CARE. IF YOU HAVE A PRIMARY DOCTOR --you should call your primary doctor and schedule an appointment IF YOU DO NOT HAVE A PRIMARY DOCTOR YOU CAN CALL OUR PHYSICIAN REFERRAL HOTLINE AT IF YOU CAN NOT AFFORD TO SEE A PHYSICIAN YOU CAN CHOSE FROM THE FOLLOWING [facility] [address] [facility]. [facility] [address] [facility] [address] [facility] [facility] [address] [facility]. [facility] [address] [facility]. [facility]. [address] [facility]. [facility] YOU HAVE RECEIVED A MEDICAL SCREENING EXAM AND THE RESULTS INDICATE THAT YOU DO NOT HAVE A CONDITION THAT REQUIRES URGENT TREATMENT IN THE EMERGENCY DEPARTMENT. FURTHER EVALUATION AND TREATMENT OF YOUR CONDITION CAN WAIT UNTIL YOU ARE SEEN IN YOUR DOCTORS OFFICE WITHIN THE NEXT 1-2 DAYS. IT IS YOUR RESPONSIBILITY TO MAKE AN APPOINTMENT FOR FOLOW-UP CARE. IF YOU HAVE A PRIMARY DOCTOR --you should call your primary doctor and schedule and appointment IF YOU DO NOT HAVE A PRIMARY DOCTOR YOU CAN CALL OUR PHYSICIAN REFERRAL HOTLINE AT . IF YOU CAN NOT AFFORD TO SEE A PHYSICIAN YOU CAN CHOSE FROM THE FOLLOWING [facility]: [facility] [address] [place] [address] [facility] [address] [place] [address] [facility] [address] [place] [address] [employer] [address] [facility] [address] [place] [address]BEN FUENTES [address] [place] [address] [address] [place] [address] [place] [address] [address] [facility] [address] [facility], [address], [facility] [address] [facility] [address] [place] [address] [facility] [address] [place] [address] [address] [facility] [address] - [address] MANZANARES, [facility] [address], [facility] [address] [address] TREVINO, [facility] [address] [facility]. [address], [facility] [address] [address] [facility] [address] [place], [place] [id number] [facility] Hours: 8:00 am - 5:00 pm Additional Instructions: Call your primary care doctor TOMORROW for an appointment during the next 2-3 days.See the doctor sooner or return here if your condition worsens before your appointment time. KEM TOLEDO PA-C Jan 30, 2017 20:00
== END 2017-01-30 15:16 | disposition home or self-care (01) ==
LOC: FTE 12:20
DX: O99.89 Other specified diseases and conditions complicating pregnancy, childbirth and the puerperium (principal); M54.9 Dorsalgia, unspecified; Z3A.11 11 weeks gestation of pregnancy
CPT/HCPCS: 76801; 81003; Z7610

== ENCOUNTER 2017-05-17 15:28 | Outpatient (CLI) | payer MEDICAID ==
[~2017-05-17] VITALS: Ht 165.1 cm; Wt 80.3 kg
[2017-05-17 16:01] VITALS: Ht 165.1 cm; Wt 80.3 kg
[2017-05-17 16:02] VITALS: BP 118/62; PULSE 75
--- NOTE | 2017-05-17 16:39 | RADRPT ---
PROCEDURE: CERVICAL LENGTH ULTRASOUND CLINICAL INDICATION: labor at 26 weeks gestational age. TECHNIQUE: Trans-vaginal imaging of the cervical canal was performed utilizing marquez-scale imaging. Sagittal and transverse images were obtained. Trans-abdominal images were also obtained. The luis ges were reviewed on a PACS workstation. COMPARISON: None. FINDINGS: There is a single live intrauterine . heart rate is 146 beats per minute. Position is cephalic and placenta is anterior grade 1. There is no placenta previa. The cervix is closed with a length of 4.4 cm. IMPRESSION: 1. Cervical length is 4.4 cm. RPTAT: QQ .Alfonzo Rosales MD, MD Date Time Electronically viewed and signed by .Alfonzo Rosales MD, on 05/17/2017 16:38 .R/
[2017-05-17 17:03] LABS: BASOPHILS % 0.4 % (0.0-2.0); EOSINOPHILS # 0.1 10^3/ul (0.0-0.5); HEMATOCRIT 30.5 % (37.0-47.0); HEMOGLOBIN 10.3 g/dl (12.0-16.0); LYMPHOCYTES # 2.5 10^3/ul (0.8-2.9); MEAN CORPUSCULAR HEMOGLOBIN 29.5 pg (29.0-33.0); MEAN CORPUSCULAR HGB CONC 33.8 g/dl (32.0-37.0); MEAN CORPUSCULAR VOLUME 87.4 fl (82.0-101.0); MEAN PLATELET VOLUME 9.9 fl (7.4-10.4); MONOCYTE # 0.7 10^3/ul (0.3-0.9); MONOCYTES % 6.5 % (0.0-11.0); NEUTROPHIL # 7.5 10^3/ul (1.6-7.5); NEUTROPHILS % 68.6 % (39.0-77.0); PLATELET COUNT 333 10^3/UL (140-415); RED BLOOD COUNT 3.49 10^6/ul (4.20-5.40); RED CELL DISTRIBUTION WIDTH 13.4 % (11.5-14.5)
[2017-05-17 17:07] LABS: ADD UMIC YES; UR ASCORBIC ACID NEGATIVE (NEGATIVE); UR BACTERIA FEW /HPF (NONE SEEN); UR BILIRUBIN (Dip) NEGATIVE (NEGATIVE); UR BLOOD (Dip) NEGATIVE (NEGATIVE); UR CLARITY SLIGHTLY CLOUDY (CLEAR); UR COLOR YELLOW (YELLOW); UR GLUCOSE (Dip) NEGATIVE (NEGATIVE); UR KETONES (Dip) NEGATIVE (NEGATIVE); UR LEUKOCYTE ESTERASE (Dip) TRACE Leu/ul (NEGATIVE); UR MUCUS FEW /HPF (NONE SEEN); UR NITRITE (Dip) NEGATIVE (NEGATIVE); UR RBC 0 /HPF (0-5); UR SPECIFIC GRAVITY (Dip) 1.009 (1.003-1.030); UR SQUAMOUS EPITHELIAL CELL FEW /HPF (FEW); UR TOTAL PROTEIN (Dip) NEGATIVE (NEGATIVE); UR UROBILINOGEN (Dip) NEGATIVE (NEGATIVE)
--- NOTE | 2017-05-17 19:29 | TRIAGE ---
OB Triage Datetime Report Generated by CPN: 05/17/2017 19:29 Datetime: 05/17/2017 19:00 Stage of : OB Triage Maternal Assessment Level of Consciousness: Fully Conscious Labor Evaluation Frequency: NONE Monitor Mode: External Resting Tone [place]: Relaxed Heart Rate FHR Baseline Rate: 140 Monitor Mode: External US Variability: Moderate 6-25 bpm Accelerations: 15X15 Decelerations: None Pain Assessment Pain Scale: 0 Pain Goal: 3 Vaginal Exam Membrane Status: Intact Vaginal Bleeding: None Datetime: 05/17/2017 18:00 Stage of : OB Triage Maternal Assessment Level of Consciousness: Fully Conscious Labor Evaluation Frequency: NONE Monitor Mode: External Resting Tone [place]: Relaxed Heart Rate FHR Baseline Rate: 140 Monitor Mode: External US Variability: Moderate 6-25 bpm Accelerations: 15X15 Decelerations: None Category: Category I Pain Assessment Pain Scale: 0 Pain Goal: 3 Vaginal Exam Membrane Status: Intact Vaginal Bleeding: None Datetime: 05/17/2017 16:11 Stage of : OB Triage Datetime: 05/17/2017 15:53 Stage of : OB Triage Assessment Type: Triage Maternal Assessment Level of Consciousness: Fully Conscious DTR's/Clonus: DTRs 2+; No Clonus Headache: Denies Blurred Vision: No Respiratory Effort: Unlabored; Regular Rhythm; Equal Expansion Breath Sounds, Left: Clear and Equal Breath Sounds, Right: Clear and Equal Nausea/Vomiting: Denies RUQ Epigastric Pain: Denies Facial Edema: None Temperature Route: Axillary Fall Risk Assessment History of Falling: (0) No Secondary Diagnosis: (0) No Ambulatory Aid: (0) Bedrest/Nurse Assist IV Therapy: (0) No Gait: (0) Normal/Bedrest/Immobile Mental Status: (0) Oriented to Own Ability Fall Score: 0 Fall Risk Score Definition: No Risk: No action required Monitor Mode: External Pattern: Normal: <= 5 Contractions in 10 Minutes Resting Tone [place]: Relaxed Heart Rate FHR Baseline Rate: 145 Monitor Mode: External US Variability: Moderate 6-25 bpm Accelerations: 10X10 Decelerations: None Category: Category I Pain Assessment Pain Scale: 7 Pain Presence: Intermittent Pain Type: Cramping Pain Location: Abdomen Pain Goal: 3 Pain Relief Measures: Comfort Measures Datetime: 05/17/2017 15:51 Time of Arrival: 05/10/2017 15:15 EGA: 25.2 Arrived By: Ambulatory Arrived From: Home Chief Complaint: C/O UC'S THIS AM WITH VAG PRESSURE, DENIES BLEEDING OR LEAKING Movement: Decreased Contractions: Irregular Rupture of Membranes: Denies Vaginal Bleeding: None Vaginal Discharge: Denies Recent Sexual Intercouse: Denies Abdominal Trauma: Not Applicable Patient Complaints: Cramping Time Provider Notified: 05/17/2017 16:00 Provider Notified: DUGLAS Initial Plan: MONITOR/CVL
--- NOTE | 2017-05-17 19:30 | PN ---
Triage Information Date/Time 05/17/2017 Reason for visit: Uterine contractions (C/O onset of lower abdominal pressure started this AM ) Weeks of Gestation 26 /Para 2/1 Diabetes: none Hypertention: none Objective Vital Signs Date Time Temp Pulse Resp B/P Pulse Ox O2 Delivery O2 Flow Rate FiO2 05/17/17 16:02 98.5 75 118/62 Heart Rate: 150's Contractions: None Exam long Closed Results/Medications Result Diagram: 05/17/17 1620 Results 24 hrs Laboratory Tests Test 05/17/17 16:20 White Blood Count 11.0 H Red Blood Count 3.49 L Hemoglobin 10.3 L Hematocrit 30.5 L Mean Corpuscular Volume 87.4 Mean Corpuscular Hemoglobin 29.5 Mean Corpuscular Hemoglobin Concent 33.8 Red Cell Distribution Width 13.4 Platelet Count 333 Mean Platelet Volume 9.9 Neutrophils % 68.6 Lymphocytes % 23.0 Monocytes % 6.5 Eosinophils % 1.0 Basophils % 0.4 Nucleated Red Blood Cells % 0.0 Neutrophils # 7.5 Lymphocytes # 2.5 Monocytes # 0.7 Eosinophils # 0.1 Basophils # 0.0 Nucleated Red Blood Cells # 0.0 Urine Color YELLOW Urine Clarity SLIGHTLY CLOUDY A Urine pH 6.0 Urine Specific [place] 1.009 Urine Ketones NEGATIVE Urine Nitrite NEGATIVE Urine Bilirubin NEGATIVE Urine Urobilinogen NEGATIVE Urine Leukocyte Esterase TRACE A Urine Microscopic RBC 0 Urine Microscopic WBC 3 Urine Squamous Epithelial Cells FEW Urine Bacteria FEW A Urine Mucus FEW A Urine Hemoglobin NEGATIVE Urine Glucose NEGATIVE Urine Total Protein NEGATIVE Imaging Results There is a single live intrauterine . heart rate is 146 beats per minute. Position is cephalic and placenta is anterior grade 1. There is no placenta previa. The cervix is closed with a length of 4.4 cm. Disposition: Discharge Assessment/Plan labor ruled out ESTRADA MAC MD May 17, 2017 19:30
== END 2017-05-17 19:30 | disposition home or self-care (01) ==
LOC: OBT 15:28 → L-D 15:29 → OBT 19:30 → L-D 19:30
PROVIDERS: ATTEND Obstetrics & Gynecology
DX: O62.9 Abnormality of forces of labor, unspecified (principal); Z3A.26 26 weeks gestation of pregnancy
CPT/HCPCS: 36415; 76817; 81001; 85025; G0463

== ENCOUNTER 2017-07-17 15:50 | Inpatient (IN) | payer MEDICAID ==
[~2017-07-17] VITALS: Ht 165.1 cm; Wt 85.5 kg
[~2017-07-17 15:50] MED LIST changes: -ACET325T33 PO; -ACET500C5 PO; -DICY10CA60 PO; -METO10TA92 PO; -ONDA4TAB14 PO
[2017-07-17 16:09] VITALS: BP 111/59; PULSE 80; Ht 165.1 cm; Wt 85.5 kg
[2017-07-17] MEDS ORDERED: TERBUTALINE 1 MG/ML INJ SC ONE ×2 (17:00→18:30)
[2017-07-17] MEDS ORDERED: LACTATED RINGER'S 1,000 ML IV SCH (17:00)
[2017-07-17 17:11] LABS: BASOPHILS % 0.2 % (0.0-2.0); EOSINOPHILS % 0.4 % (0.0-7.0); HEMATOCRIT 32.8 % (37.0-47.0); HEMOGLOBIN 10.5 g/dl (12.0-16.0); LYMPHOCYTES # 2.1 10^3/ul (0.8-2.9); LYMPHOCYTES % 20.8 % (15.0-51.0); MEAN CORPUSCULAR HEMOGLOBIN 26.4 pg (29.0-33.0); MEAN CORPUSCULAR VOLUME 82.4 fl (82.0-101.0); MEAN PLATELET VOLUME 10.3 fl (7.4-10.4); MONOCYTE # 0.5 10^3/ul (0.3-0.9); MONOCYTES % 4.6 % (0.0-11.0); NEUTROPHIL # 7.5 10^3/ul (1.6-7.5); NEUTROPHILS % 73.5 % (39.0-77.0); PLATELET COUNT 329 10^3/UL (140-415); RED BLOOD COUNT 3.98 10^6/ul (4.20-5.40); RED CELL DISTRIBUTION WIDTH 14.6 % (11.5-14.5); WHITE BLOOD COUNT 10.2 10^3/ul (4.8-10.8)
[2017-07-17 17:12] LABS: ADD UMIC YES; UR ASCORBIC ACID NEGATIVE (NEGATIVE); UR BACTERIA FEW /HPF (NONE SEEN); UR BILIRUBIN (Dip) NEGATIVE (NEGATIVE); UR BLOOD (Dip) NEGATIVE (NEGATIVE); UR CLARITY SLIGHTLY CLOUDY (CLEAR); UR COLOR YELLOW (YELLOW); UR GLUCOSE (Dip) NEGATIVE (NEGATIVE); UR KETONES (Dip) TRACE mg/dL (NEGATIVE); UR LEUKOCYTE ESTERASE (Dip) 1+ Leu/ul (NEGATIVE); UR NITRITE (Dip) NEGATIVE (NEGATIVE); UR RBC 1 /HPF (0-5); UR SPECIFIC GRAVITY (Dip) 1.016 (1.003-1.030); UR SQUAMOUS EPITHELIAL CELL MODERATE /HPF (FEW); UR TOTAL PROTEIN (Dip) NEGATIVE (NEGATIVE); UR UROBILINOGEN (Dip) NEGATIVE (NEGATIVE)
[2017-07-17] MEDS ORDERED: BETAMET NA PHOS/AC(6 MG/ML) 5ML INJ IM ONE (18:30)
[2017-07-17] MEDS ORDERED: MAGNESIUM SULFATE 4 GM/100 ML 100 ML IV ONE (20:30)
[2017-07-17] MEDS ORDERED: ONDANSETRON 4 MG INJ IV PRN (20:30)
[2017-07-17] MEDS ORDERED: AL HYDROX/MG HYDROX/SIMETH 30 ML CUP PO PRN (20:30)
[2017-07-17] MEDS: MAGNESIUM SULFATE 20 GM/500 ML 500 ML IV SCH (22:09)
[2017-07-17] MEDS: LACTATED RINGER'S 1,000 ML IV SCH (22:12)
[2017-07-18] MEDS: MAGNESIUM SULFATE 20 GM/500 ML 500 ML IV SCH ×2 (06:45→16:44)
[2017-07-18] MEDS: PRENATAL VITAMIN PO SCH (09:36)
--- NOTE | 2017-07-18 10:36 | HP ---
Date/Time of Note Date/Time of Note DATE: 07/18/17 TIME: 10:32 OB - History Hx of Present Free Text/Dictation Sent in from clinic at 35 weeks for possible heart tone decelerations and lower abdominal pressure Patient was examined in the clinic appear to be 2 cm open Last Menstrual Period: Nov 06, 2016 Estimated Due Date: Aug 21, 2017 : 2 Para: 1 Care: Good Care Ultrasounds: Normal mid trimester US Obstetrical Complications: None Medical Complications: None Past Family/Social History * Past Medical, Surgical, Family and Obstetric Histories reviewed from chart. Blood Type: O+ Rubella: immune RPR/VDRL: Negative GBS Status: Unknown HBsAG: Negative OB Admission Exam Vital Signs Vital Signs Vital Signs Date Time Temp Pulse Resp B/P Pulse Ox O2 Delivery O2 Flow Rate FiO2 07/17/17 16:09 98.3 80 111/59 Physical Exam HEENT: WNL Heart: Rhythm Normal Lungs: Clear, Equal Abdomen: WNL Extremities: Normal Reflexes: Normal Cervical Dilatation: 2cm Effacement: 50% Station: -3 Membranes: Intact Heart Rate: 140's Accelerations: Accelerations Present Decelerations: No Decelerations Varibility: Moderate Contractions on Admission: < 5 Minutes Apart Date/Time Contractions Began: July 17, 2017 at 6:00 AM Frequency of Contractions: Every 3 4 minutes Duration: Over 45 seconds Intensity: Moderate Last 72 hours Lab Results CBC & BMP 07/17/17 16:45 Magnesium Level Test 07/18/17 00:22 07/18/17 05:32 Magnesium Level 4.0 H 4.7 H OB Assessment/Plan Reason for admission: labor Other Assessment: 35 weeks gestation Other plan: Patient was started on magnesium sulfate for less than 24 hours and steroids were given ESTRADA MAC MD Jul 18, 2017 10:36
--- NOTE | 2017-07-18 10:40 | PN ---
Date/Time of Note Date/Time of Note DATE: 07/18/17 TIME: 10:38 OB Subjective Subjective Subjective Still has complain of minimal cramping however feels considerably better comparing to her arrival in hospital day before OB Objective Objective Objective Vital signs are stable General physical exam is unchanged On electronic monitoring minimal or no uterine contractions seen OB Assessment/Plan Reason for admission: labor Other Assessment: 35 weeks gestation Other plan: We will DC magnesium sulfate 24 hour after onset Second dose of steroids will be given Change to p.o. medication after stopping the magnesium sulfate ESTRADA MAC MD Jul 18, 2017 10:40
[2017-07-18] MEDS: LACTATED RINGER'S 1,000 ML IV SCH (11:33)
[2017-07-18] MEDS ORDERED: BETAMET NA PHOS/AC(6 MG/ML) 5ML INJ IM SCH (18:30)
[2017-07-18] MEDS: ACETAMINOPHEN 325 MG TAB PO PRN (18:30)
[2017-07-18] MEDS ORDERED: NIFEdipine 10 MG CAP PO ONE (22:00)
[2017-07-19] MEDS: NIFEdipine 10 MG CAP PO SCH ×4 (00:21→17:59)
[2017-07-19] MEDS: LACTATED RINGER'S 1,000 ML IV SCH ×3 (00:24→23:52)
--- NOTE | 2017-07-19 11:22 | RADRPT ---
PROCEDURE: US OB biophysical profile. CLINICAL INDICATION: Decreased movement TECHNIQUE: Multiple sonographic images of the pelvis were obtained. The images were reviewed on a PACS workstation. COMPARISON: May 17, 2017 FINDINGS: There is a single live intrauterine , in cephalic presentation. A normal heart rate i s identified measuring 167 beats per minute. The amniotic fluid index is within normal limits measur ing 9.3 cm. Biophysical profile: movement 2/2 tone 2/2. breathing 2/2 ELLIE 2/2 Total 03/28 IMPRESSION: 1. Biophysical profile score of 8/8. 2. Single live intrauterine in cephalic presentation with normal heart rate of 167 b pm. 3. Normal amniotic fluid index of 9.3 cm. Physician Reny Date Time Electronically viewed and signed by Physician Reny on 07/19/2017 11:22 NYLA/
[2017-07-19] MEDS: PRENATAL VITAMIN PO SCH (12:30)
[2017-07-19] MEDS: ACETAMINOPHEN 325 MG TAB PO PRN (12:34)
--- NOTE | 2017-07-19 18:20 | PN ---
Date/Time of Note Date/Time of Note DATE: 07/19/17 TIME: 18:18 OB Subjective Subjective Subjective No more complaint of uterine contractions OB Objective Objective Objective Vital signs stable in general physical exam is unchanged On electronic monitoring variable and prolonged deceleration seen with subsequent tachycardia Currently heart tones are reactive Biophysical profile is normal OB Assessment/Plan Reason for admission: labor Other Assessment: 35+ weeks gestation heart tone abnormalities Other plan: Continue to observe and Perinatology consult next day ESTRADA MAC MD Jul 19, 2017 18:20
[2017-07-20] MEDS: NIFEdipine 10 MG CAP PO SCH ×3 (00:01→12:25)
[2017-07-20] MEDS: LACTATED RINGER'S 1,000 ML IV SCH (08:07)
[2017-07-20] MEDS: PRENATAL VITAMIN PO SCH (09:34)
--- NOTE | 2017-07-20 14:34 | CONS ---
DATE OF ADMISSION: 07/17/2017 DATE OF CONSULTATION: 07/20/2017 Apparently, patient was sent from her clinic after they heard a heart tone deceleration. She has been on the monitor since yesterday. At around 4:30 yesterday she had some spontaneous decelera tions for 2 minutes about 40 below baseline and after that it has been completely reactive and becca l. RECOMMENDATIONS: Patient can be discharged home with normal spontaneous delivery either Monday or Monday. Dictated By: JENNY DAVIS/ANDREZ Conf#: [id number] DID#: [id number]
--- NOTE | 2017-07-20 14:37 | DS ---
Date/Time of Note Date/Time of Note Per perinatology recommendation will follow the patient as outpatient and repeat antepartum testing in 2 days DATE: 07/20/17 TIME: 14:36 Obstetrical Discharge Record Final Diagnosis Final Diagnosis: not delivered Other Final Diagnosis labor Complications Tocolytics: Magnesium Sulfate, Other (Nifedipine) Condition on Discharge Physical Assessment Last Vitals: See nurse's notes Voiding: Yes Bowel Movement: Yes Breast: Soft, non-tender, Filling Fundus: Other () Abdomen and Incision: Episiotomy: Not applicable Calf Tenderness: No Patient Condition: Good ESTRADA MAC MD Jul 20, 2017 14:37
--- NOTE | 2017-07-20 14:39 | DS ---
Date/Time of Note Date/Time of Note DATE: 07/20/17 TIME: 14:37 Discharge Summary Admission/Discharge Info Admit Date/Time Jul 17, 2017 at 20:25 Discharge Date/Time July 20, 2017 Discharge Diagnosis labor at 35 weeks Infrequent variable deceleration of heart tones Patient Condition: Good Consults Perinatology who recommended to follow-up patient as outpatient and within 2 days repeat antepartum testing Procedures Tocolyse is of contractions Hx of Present Illness 21-year-old female admitted in labor at 35 weeks and had tocolysis of contractions Hospital Course Uncomplicated Home Meds Reported Medications Iron,Carbonyl/Vit C/Vit B12/Fa (IRON 100 PLUS TABLET) 1 Each Tablet, 1 EACH PO DAILY, #1 04/02/13 Vit/Fe Fumarate/Fa* ( Vitamin Tablet*) 1 Tab Tablet, 1 TAB PO 04/02/13 Follow-up Plan 2 days Primary Care Provider Not On Staff Doctor Time spent on discharge: > 30 minutes ESTRADA MAC MD Jul 20, 2017 14:39
--- NOTE | 2017-07-20 14:40 | PD.PPDC ---
VISITING NURSE Discharge Instruction Provider Information Physician Information 21-year-old female admitted with labor on tocolyse is of contractions Diagnosis Final Diagnosis: labor Condition Patient Condition: Good Diet Diet: Resume Regular Diet Activity/Restrictions Activity: Bedrest May Shower Restrictions: No Exercising No Lifting Nothing in the Vagina Follow-up Follow-up with Physician: 2, Day/Days (In OB triage for antepartum testing) Return to clinic for Comment: Refer back to OB triage for decreased movement on her persistent uterine contractions Kick count was instructed to the patient ESTRADA MAC MD Jul 20, 2017 14:40
[2017-07-20] MEDS ORDERED: NIFE10CA19 PO (14:42)
== END 2017-07-20 16:30 | disposition home or self-care (01) | DRG 778 ==
LOC: OBT 15:50 → L-D 15:54 → OBT 20:25 → OBG 20:25
PROVIDERS: ADMIT Obstetrics & Gynecology; ATTEND Obstetrics & Gynecology
DX: O60.03 Preterm labor without delivery, third trimester (principal); O76 Abnormality in fetal heart rate and rhythm complicating labor and delivery; Z3A.35 35 weeks gestation of pregnancy
CPT/HCPCS: 36415; 76818; 81001; 83735; 85025; 87086; 96360; 96361; 96372; G0463; J0702; J3105; J3475; J7120

== ENCOUNTER 2017-07-22 07:54 | Outpatient (CLI) | payer MEDICAID ==
[~2017-07-22] VITALS: Ht 165.1 cm; Wt 83.5 kg
[~2017-07-22 07:54] MED LIST changes: +NIFE10CA19 PO
[2017-07-22 08:25] VITALS: Ht 165.1 cm; Wt 83.5 kg
[2017-07-22 08:26] VITALS: BP 116/69; PULSE 94; RESP 18
--- NOTE | 2017-07-22 08:55 | RADRPT ---
PROCEDURE: Obstetrical ultrasound for biophysical profile CLINICAL INDICATION: Biophysical profile. . TECHNIQUE: Obstetrical ultrasound of the uterus for biophysical profile. Transabdominal views are obtained. COMPARISON: US PELVIS 07/19/2017 FINDINGS: Single intrauterine gestation. Presentation: Cephalic. Placenta: Anterior. No evidence of placental abruption. No evidence of placenta previa. breathing movement = 2/2 tone = 2/2 motion = 2/2 ELLIE = 2/2 ELLIE = 11.3 cm heart rate: 179 beats per minute IMPRESSION: Single intrauterine gestation. Biophysical profile 03/28 RPTAT: AADD .Ruperto Meade MD, MD Date Time Electronically viewed and signed by .Ruperto Meade MD, on 07/22/2017 08:55 .B/
--- NOTE | 2017-07-22 10:20 | CONS ---
Date/Time of Note Date/Time of Note DATE: 07/22/17 TIME: 10:09 Consultation Date/Type/Reason Admit Date/Time July 22, 2017 OB triage consult This patient is a 21 years old 2 para 1 living 1 with 1 previous spontaneous vaginal delivery. Her estimated date of confinement is June 21, 2018 which makes her 35 weeks and 5 days today. She was hospitalized for a few days in the past due to premature contraction she was sent here today from the clinic for further evaluation and monitoring. On examination she is a well-developed well-nourished at 3rd trimester. Her general vital signs appears to be normal with blood pressure of 116/69, pulse rate of 94, respiration 18. And temperature of 98.4, her oxygen saturation at room temperature was reported 94%. .On examination today her abdomen is soft ,she does not have frequent contraction, only occasional contractions noted heart tracing is normal with fairly good variability and occasional acceleration no decelerations. Constitutional: No chills, No diaphoresis, No disoriented, No febrile, No improved, No no complaints, No other, No poor po, No requiring IVF, No requiring O2 Eyes: No discharge, No no complaints, No other, No pain, No redness, No visual change ENT: No bleeding, No congestion, No discharge, No dysphagia, No no complaints, No other, No pain, No sore throat Respiratory: No cough, No no complaints, No other, No pain, No pleuritic pain, No shortness of breath, No sputum, No wheezing Cardiovascular: No chest pain, No edema, No lightheadedness, No no complaints, No orthopenea, No other, No palpitations, No paroxysmal nocturnal dyspnea Gastrointestinal: No blood, No constipation, No decreased appetite, No diarrhea , No flatus, No nausea, No no complaints, No other, No pain, No passing stool, No vomiting Genitourinary: other (Due to lack of any contractions in the pelvic examination was not performed), No bleeding, No discharge, No dysuria, No flank pain, No hematuria, No no complaints Musculoskeletal: No back pain, No bone/joint pain, No neck pain, No no complaints, No other, No restricted range of motion, No swelling Skin: No bruising, No erythema, No laceration, No no complaints, No other, No pruritis, No rash, No skin lesions Neurologic: No confusion, No dizziness, No focal-weakness, No headache, No no complaints, No other, No seizure, No syncope Endocrine: No dry skin, No no complaints, No other, No polydypsia, No polyuria , No temp intolerance Additional Comments As I mentioned the NST was negative ,her urinalysis was normal on ultrasound study report was, a single intrauterine gestation in vertex presentation ,amniotic fluid index was reported 11.3 cm with biophysical profile 03/28 Disposition. With these finding patient was discharged home to continue doing the kick count and to be followed by her content development manager in the clinic. She is advised to return to triage in case of labor ,rupture of membrane , vaginal bleeding or any other major complications of . End of dictation Social History Smoking Status: Never smoker Exam/Review of Systems Vital Signs Vitals Vital Signs Date Time Temp Pulse Resp B/P Pulse Ox O2 Delivery O2 Flow Rate FiO2 07/22/17 08:26 98.4 94 18 116/69 94 Room Air MARICARMEN WOLF MD Jul 22, 2017 10:20
== END 2017-07-22 10:42 | disposition home or self-care (01) ==
LOC: OBT 07:54 → L-D 07:56 → OBT 10:42
PROVIDERS: ATTEND Obstetrics & Gynecology
DX: O62.9 Abnormality of forces of labor, unspecified (principal); Z3A.35 35 weeks gestation of pregnancy
CPT/HCPCS: 76818

== ENCOUNTER 2017-08-02 13:42 | Outpatient (CLI) | END 2017-08-02 18:05 | disposition home or self-care (01) ==

== ENCOUNTER 2017-08-08 13:30 | Outpatient (CLI) | payer MEDICAID ==
[~2017-08-08] VITALS: Ht 165.1 cm; Wt 84.6 kg
[~2017-08-08 13:30] MED LIST changes: -NIFE10CA19 PO
[2017-08-08 13:59] VITALS: BP 110/62; PULSE 86; RESP 18
[2017-08-08 14:12] VITALS: Ht 165.1 cm; Wt 84.6 kg
[2017-08-08] MEDS ORDERED: LACTATED RINGER'S 1,000 ML IV ONE (15:30)
[2017-08-08] MEDS ORDERED: LACTATED RINGER'S 1,000 ML IV PRN (15:30)
[2017-08-08] MEDS ORDERED: morphine 10 MG INJ IM ONE (18:30)
--- NOTE | 2017-08-08 22:58 | PN ---
Triage Information Date/Time Reason for visit: Uterine contractions Weeks of Gestation 38 weeks /Para Diabetes: none Hypertention: none Objective Vital Signs Date Time Temp Pulse Resp B/P Pulse Ox O2 Delivery O2 Flow Rate FiO2 08/08/17 13:59 98.0 86 18 110/62 97 Room Air Heart Rate: 120's Heart Rate Comments Category I Contractions: 6-10 Minutes Apart Exam Cervix 2 cm Results/Medications Medications Current Medications Lactated Ringer's (Lr) 1,000 ml @ 125 mls/hr Q8H PRN IV CONTRACTIONS Last administered on 08/08/17t 16:54; Admin Dose 125 MLS/HR; Start 08/08/17 at 15: 30 Disposition: Discharge Assessment/Plan No cervical change ANDREW FRAGA MD Aug 08, 2017 22:58
--- NOTE | 2017-08-09 00:02 | TRIAGE ---
OB Triage Datetime Report Generated by CPN: 08/09/2017 00:02 Datetime: 08/08/2017 23:45 Stage of : OB Triage Datetime: 08/08/2017 22:56 Stage of : OB Triage Datetime: 08/08/2017 22:55 Assessment Type: Triage Datetime: 08/08/2017 22:50 Vaginal Exam Dilatation (cms): 2.0 Exam By: Dr.Delshad Datetime: 08/08/2017 22:49 Stage of : OB Triage Datetime: 08/08/2017 22:40 Stage of : OB Triage Nausea/Vomiting: Present (Annotations: Pt reports vomiting after going to [facility]. Pt states still dizz y after Morphine given. Will notify MD.) Datetime: 08/08/2017 22:23 Stage of : OB Triage Monitor Mode: External Quality: Mild Pattern: Normal: <= 5 Contractions in 10 Minutes Resting Tone [place]: Relaxed Vaginal Exam Dilatation (cms): 2.0 Effacement (%): 50 Station: -3 Exam By: Preston Abraham Membrane Status: Intact Vaginal Bleeding: Scant Cervix, Consistency: Soft Cervix, Position: Posterior Presentation 'A': Cephalic Datetime: 08/08/2017 22:00 Labor Evaluation Frequency: 2-5 Monitor Mode: External Quality: Mild Pattern: Normal: <= 5 Contractions in 10 Minutes Resting Tone [place]: Relaxed Heart Rate FHR Baseline Rate: 120 Monitor Mode: External US FHR Baseline Changes: No Baseline Change Variability: Moderate 6-25 bpm Accelerations: 15X15 Decelerations: None Category: Category I Datetime: 08/08/2017 21:00 Labor Evaluation Frequency: 3-5 Monitor Mode: External Quality: Mild Pattern: Normal: <= 5 Contractions in 10 Minutes Resting Tone [place]: Relaxed Heart Rate FHR Baseline Rate: 120 Monitor Mode: External US FHR Baseline Changes: No Baseline Change Variability: Moderate 6-25 bpm Accelerations: 15X15 Decelerations: None Category: Category I Datetime: 08/08/2017 19:52 Stage of : OB Triage Labor Evaluation Frequency: 2-4 Monitor Mode: External Duration (sec)2399: 40-60 Quality: Mild Pattern: Normal: <= 5 Contractions in 10 Minutes Resting Tone [place]: Relaxed Heart Rate FHR Baseline Rate: 120 Monitor Mode: External US FHR Baseline Changes: No Baseline Change Variability: Moderate 6-25 bpm Accelerations: 15X15 Decelerations: None Category: Category I Pain Assessment Pain Scale: 4 Pain Presence: Intermittent Pain Type: Cramping; Contraction Pain Location: Abdomen Datetime: 08/08/2017 19:30 Assessment Type: Triage Maternal Assessment Level of Consciousness: Fully Conscious DTR's/Clonus: DTRs 2+; No Clonus Headache: Denies Blurred Vision: No Respiratory Effort: Unlabored; Regular Rhythm; Equal Expansion Breath Sounds, Left: Clear and Equal Breath Sounds, Right: Clear and Equal Nausea/Vomiting: Denies RUQ Epigastric Pain: Denies Upper Extremities Edema: None Degree: None Facial Edema: None Fall Risk Assessment History of Falling: (0) No Secondary Diagnosis: (0) No Ambulatory Aid: (0) Bedrest/Nurse Assist IV Therapy: (0) No Gait: (0) Normal/Bedrest/Immobile Mental Status: (0) Oriented to Own Ability Fall Score: 0 Fall Risk Score Definition: No Risk: No action required Datetime: 08/08/2017 19:11 Stage of : OB Triage Labor Evaluation Frequency: 2-4 Monitor Mode: External Duration (sec)2399: 40-60 Quality: Moderate Pattern: Normal: <= 5 Contractions in 10 Minutes Resting Tone [place]: Relaxed Heart Rate FHR Baseline Rate: 120 Monitor Mode: External US FHR Baseline Changes: No Baseline Change Variability: Moderate 6-25 bpm Accelerations: 15X15 Decelerations: None Category: Category I Datetime: 08/08/2017 19:00 Stage of : OB Triage Labor Evaluation Frequency: 2-6 Monitor Mode: External Duration (sec)2399: 50-90 Quality: Strong Resting Tone [place]: Relaxed Heart Rate FHR Baseline Rate: 115 Monitor Mode: External US Variability: Moderate 6-25 bpm Accelerations: Prolonged Decelerations: None Category: Category I Pain Assessment Pain Scale: 7 Pain Presence: Intermittent Pain Type: Contraction Pain Location: Abdomen Pain Relief Measures: Epidural Given Datetime: 08/08/2017 18:00 Stage of : OB Triage Labor Evaluation Frequency: 2-4 Monitor Mode: External Duration (sec)2399: 50-90 Quality: Strong Resting Tone [place]: Relaxed Heart Rate FHR Baseline Rate: 125 Monitor Mode: External US Variability: Marked >25 bpm Accelerations: Prolonged Decelerations: None Category: Category I Datetime: 08/08/2017 17:27 Vaginal Exam Dilatation (cms): 2.0 Effacement (%): 40 Station: -3 Exam By: LR RN Vaginal Bleeding: None Cervix, Consistency: Firm Cervix, Position: Midposition Presentation 'A': Cephalic Lie 'A': Longitudinal Datetime: 08/08/2017 17:00 Stage of : OB Triage Labor Evaluation Frequency: 3-6 Monitor Mode: External Duration (sec)2399: 70-90 Quality: Moderate Resting Tone [place]: Relaxed Heart Rate FHR Baseline Rate: 125 Monitor Mode: External US Variability: Marked >25 bpm Accelerations: Prolonged Decelerations: None Category: Category I Datetime: 08/08/2017 15:56 Stage of : OB Triage Labor Evaluation Frequency: 7-10 Monitor Mode: External Duration (sec)2399: 70-90 Quality: Moderate Resting Tone [place]: Relaxed Heart Rate FHR Baseline Rate: 125 Monitor Mode: External US Variability: Marked >25 bpm Accelerations: Prolonged Decelerations: None Category: Category I Datetime: 08/08/2017 15:13 Stage of : OB Triage Labor Evaluation Frequency: 3-4 Monitor Mode: External Duration (sec)2399: 70-90 Quality: Moderate Resting Tone [place]: Relaxed Heart Rate FHR Baseline Rate: 135 Monitor Mode: External US Variability: Marked >25 bpm Accelerations: Prolonged Decelerations: None Category: Category I Datetime: 08/08/2017 14:20 Stage of : OB Triage Labor Evaluation Frequency: 10 Monitor Mode: External Duration (sec)2399: 90 Quality: Mild Resting Tone [place]: Relaxed Heart Rate FHR Baseline Rate: 145 Monitor Mode: External US Variability: Marked >25 bpm Accelerations: Prolonged Decelerations: None Category: Category I Datetime: 08/08/2017 14:05 Labor Evaluation Frequency: 10 Monitor Mode: External Duration (sec)2399: 90 Quality: Mild Resting Tone [place]: Relaxed Contraction Comments: per pt Comments: baseline undeterminate Vaginal Exam Dilatation (cms): 2.0 Effacement (%): 40 Station: -3 Exam By: farida alexander Vaginal Bleeding: None Cervix, Consistency: Firm Cervix, Position: Posterior Presentation 'A': Cephalic Lie 'A': Longitudinal Datetime: 08/08/2017 13:24 Arrived By: Ambulatory Arrived From: Home Chief Complaint: uc's; pt with hx ptl discharged from hospital 07/20; was 2 cm then Movement: Present Contractions: Regular Time Contractions Began: 08/08/2017 07:00 Rupture of Membranes: Denies Vaginal Bleeding: None Vaginal Discharge: Denies Recent Sexual Intercouse: Denies Abdominal Trauma: Not Applicable Patient Complaints: Contractions Time Provider Notified: 08/08/2017 15:20 Provider Notified: Dr Kaufman Initial Plan: nst monitor uc's Datetime: 08/02/2017 14:23 Fall Score: 0 Fall Risk Score Definition: No Risk: No action required Datetime: 08/02/2017 14:18 EGA: 37.2 Datetime: 07/22/2017 08:22 Fall Score: 0 Fall Risk Score Definition: No Risk: No action required Datetime: 07/22/2017 08:21 EGA: 35.5 Datetime: 07/19/2017 19:22 Fall Score: 0 Fall Risk Score Definition: No Risk: No action required Datetime: 07/18/2017 19:14 Fall Score: 0 Fall Risk Score Definition: No Risk: No action required Datetime: 07/17/2017 20:35 Fall Score: 0 Fall Risk Score Definition: No Risk: No action required Datetime: 07/17/2017 16:01 Fall Score: 0 Fall Risk Score Definition: No Risk: No action required Datetime: 07/17/2017 16:00 EGA: 35.0 Datetime: 05/17/2017 15:53 Fall Score: 0 Fall Risk Score Definition: No Risk: No action required Datetime: 05/17/2017 15:51 EGA: 25.2
== END 2017-08-08 23:45 | disposition home or self-care (01) ==
LOC: L-D 13:30 → OBT 13:30 → L-D 13:44 → OBT 23:45
PROVIDERS: ATTEND Obstetrics & Gynecology
DX: O62.9 Abnormality of forces of labor, unspecified (principal); Z3A.38 38 weeks gestation of pregnancy
CPT/HCPCS: 36415; 96360; 96361; 96375; J2270; J7120; Z7500; G0463

== ENCOUNTER 2017-08-11 17:07 | Outpatient (CLI) | payer MEDICAID ==
[~2017-08-11] VITALS: Ht 165.1 cm; Wt 85.4 kg
[2017-08-11 17:20] VITALS: BP 119/64; PULSE 98; RESP 18
[2017-08-11] MEDS ORDERED: morphine 10 MG INJ IM ONE (18:00)
[2017-08-11] MEDS ORDERED: LACTATED RINGER'S 1,000 ML IV SCH (18:00)
--- NOTE | 2017-08-11 19:58 | PN ---
Triage Information Date/Time Reason for visit: Uterine contractions Weeks of Gestation 38w 4d /Para Objective Vital Signs Date Time Temp Pulse Resp B/P Pulse Ox O2 Delivery O2 Flow Rate FiO2 08/11/17 17:20 98.4 98 18 119/64 95 Heart Rate Comments reactive Contractions: >10 Minutes Apart Exam 1-2/50/-2 Results/Medications Medications Current Medications Lactated Ringer's (Lr) 1,000 ml @ 125 mls/hr Q8H IV Last administered on 08/11t 18:07; Admin Dose 125 MLS/HR; Start 08/11/17 at 18:00 Disposition: Discharge MAYCOL GARCIA Aug 11, 2017 19:58
--- NOTE | 2017-08-11 21:04 | TRIAGE ---
OB Triage Datetime Report Generated by CPN: 08/11/2017 21:04 Datetime: 08/11/2017 20:10 Stage of : OB Triage Datetime: 08/11/2017 19:45 Stage of : OB Triage Datetime: 08/11/2017 19:41 Stage of : OB Triage Datetime: 08/11/2017 19:31 Stage of : OB Triage Datetime: 08/11/2017 19:17 Stage of : OB Triage Datetime: 08/11/2017 19:00 Labor Evaluation Frequency: x2 Monitor Mode: External Duration (sec)2399: 60 Quality: Mild Pattern: Normal: <= 5 Contractions in 10 Minutes Resting Tone [place]: Relaxed Heart Rate FHR Baseline Rate: 160 Monitor Mode: External US FHR Baseline Changes: No Baseline Change Variability: Marked >25 bpm Accelerations: 15X15 Decelerations: Variable Pain Assessment Pain Scale: 6 Pain Presence: Intermittent Pain Type: Contraction Pain Location: Abdomen; Back Datetime: 08/11/2017 18:38 Monitor Mode: External US Datetime: 08/11/2017 18:28 Monitor Mode: External US Datetime: 08/11/2017 18:11 Assessment Type: Triage Datetime: 08/11/2017 18:00 Maternal Assessment Level of Consciousness: Fully Conscious Headache: Denies Blurred Vision: No Nausea/Vomiting: Denies RUQ Epigastric Pain: Denies Facial Edema: None Labor Evaluation Frequency: x2 Monitor Mode: External Duration (sec)2399: 60 Quality: Mild Pattern: Normal: <= 5 Contractions in 10 Minutes Resting Tone [place]: Relaxed Heart Rate FHR Baseline Rate: 155 Monitor Mode: External US FHR Baseline Changes: No Baseline Change Variability: Moderate 6-25 bpm Accelerations: 15X15 Decelerations: Variable Comments: Vx1 Datetime: 08/11/2017 17:25 Vaginal Exam Dilatation (cms): 1.5 Effacement (%): 50 Station: -3 Exam By: [email or web address] Vaginal Bleeding: None Cervix, Consistency: Moderate Cervix, Position: Posterior Presentation 'A': Unable to Assess Datetime: 08/11/2017 17:14 Time of Arrival: 08/11/2017 16:57 EGA: 38.4 Arrived By: Ambulatory Chief Complaint: CONTRACTIONS Movement: Present Contractions: Regular Time Contractions Began: 08/10/2017 19:00 Contractions: Q6MIN Rupture of Membranes: Denies Vaginal Bleeding: Normal Show Vaginal Discharge: Present Recent Sexual Intercouse: Denies Abdominal Trauma: Not Applicable Patient Complaints: Contractions Time Provider Notified: 08/11/2017 17:38 Provider Notified: DR. ARDON Initial Plan: EFM x2, IV HYDRATION, MORPHINE (10MG, IM) Datetime: 08/11/2017 17:12 Stage of : OB Triage Assessment Type: Triage Maternal Assessment Level of Consciousness: Fully Conscious Headache: Denies Blurred Vision: No Respiratory Effort: Unlabored; Regular Rhythm; Equal Expansion Breath Sounds, Left: Clear and Equal Breath Sounds, Right: Clear and Equal Nausea/Vomiting: Denies RUQ Epigastric Pain: Denies Lower Extremities Edema: None Degree: None Upper Extremities Edema: None Degree: None Facial Edema: None Temperature Route: Oral Fall Risk Assessment History of Falling: (0) No Secondary Diagnosis: (0) No Ambulatory Aid: (0) Bedrest/Nurse Assist IV Therapy: (0) No Gait: (0) Normal/Bedrest/Immobile Mental Status: (0) Oriented to Own Ability Fall Score: 0 Fall Risk Score Definition: No Risk: No action required Pain Assessment Pain Scale: 9 Pain Presence: Intermittent Pain Type: Cramping; Contraction Pain Location: Abdomen; Back Datetime: 08/08/2017 19:30 Fall Score: 0 Fall Risk Score Definition: No Risk: No action required Datetime: 08/02/2017 14:23 Fall Score: 0 Fall Risk Score Definition: No Risk: No action required Datetime: 08/02/2017 14:18 EGA: 37.2 Datetime: 07/22/2017 08:22 Fall Score: 0 Fall Risk Score Definition: No Risk: No action required Datetime: 07/22/2017 08:21 EGA: 35.5 Datetime: 07/19/2017 19:22 Fall Score: 0 Fall Risk Score Definition: No Risk: No action required Datetime: 07/18/2017 19:14 Fall Score: 0 Fall Risk Score Definition: No Risk: No action required Datetime: 07/17/2017 20:35 Fall Score: 0 Fall Risk Score Definition: No Risk: No action required Datetime: 07/17/2017 16:01 Fall Score: 0 Fall Risk Score Definition: No Risk: No action required Datetime: 07/17/2017 16:00 EGA: 35.0 Datetime: 05/17/2017 15:53 Fall Score: 0 Fall Risk Score Definition: No Risk: No action required Datetime: 05/17/2017 15:51 EGA: 25.2
== END 2017-08-11 20:10 | disposition home or self-care (01) ==
LOC: OBT 17:07 → L-D 17:10 → OBT 20:10
PROVIDERS: ATTEND Obstetrics & Gynecology
DX: O62.9 Abnormality of forces of labor, unspecified (principal); Z3A.38 38 weeks gestation of pregnancy
CPT/HCPCS: 96360; 96361; 96372; J2270; J7120; Z7500; G0463

== ENCOUNTER 2017-08-11 21:12 | Outpatient (CLI) | END 2017-08-11 21:30 | disposition home or self-care (01) ==

== ENCOUNTER 2017-08-12 02:48 | Inpatient (IN) | payer MEDICAID ==
[~2017-08-12] VITALS: Ht 165.1 cm; Wt 88.6 kg
[~2017-08-12 02:48] MED LIST changes: -IRON1TAB78 PO
--- NOTE | 2017-08-12 03:07 | HP ---
Date/Time of Note Date/Time of Note DATE: 08/12/17 TIME: 03:05 OB - History Hx of Present : 2 Para: 1 Care: Good Care Obstetrical Complications: None Medical Complications: None Past Family/Social History * Past Medical, Surgical, Family and Obstetric Histories reviewed from chart. OB Admission Exam Physical Exam HEENT: WNL Heart: Rhythm Normal Lungs: Clear Abdomen: WNL Extremities: Normal Cervical Dilatation: 3cm Membranes: Intact Accelerations: Accelerations Present Decelerations: No Decelerations Varibility: Moderate Contractions on Admission: < 5 Minutes Apart OB Assessment/Plan Reason for admission: active labor Plan: Expectant Management Other plan: Epidural, pitocin MAYCOL Soto Aug 12, 2017 03:07
[2017-08-12 03:17] VITALS: Ht 165.1 cm; Wt 88.6 kg
--- NOTE | 2017-08-12 03:20 | TRIAGE ---
OB Triage Datetime Report Generated by CPN: 08/12/2017 03:20 Datetime: 08/12/2017 03:00 Dilatation (cms): 4.0 Effacement (%): 80 Station: -2 Datetime: 08/12/2017 02:54 Stage of : OB Triage Assessment Type: Triage Level of Consciousness: Fully Conscious Headache: Denies Blurred Vision: No Respiratory Effort: Unlabored; Regular Rhythm; Equal Expansion Nausea/Vomiting: Denies RUQ Epigastric Pain: Denies Facial Edema: None History of Falling: (0) No Secondary Diagnosis: (0) No Ambulatory Aid: (0) Bedrest/Nurse Assist IV Therapy: (0) No Gait: (0) Normal/Bedrest/Immobile Mental Status: (0) Oriented to Own Ability Fall Score: 0 Fall Risk Score Definition: No Risk: No action required Datetime: 08/12/2017 02:53 Time of Arrival: 08/12/2017 02:42 EGA: 38.5 Arrived By: Wheelchair Arrived From: Home Chief Complaint: UC'S Movement: Present Contractions: Regular Time Contractions Began: 08/12/2017 01:00 Contractions: Q3MIN Rupture of Membranes: Denies Vaginal Bleeding: Scant Vaginal Discharge: Denies Recent Sexual Intercouse: Denies Abdominal Trauma: Not Applicable Patient Complaints: Contractions Time Provider Notified: 08/12/2017 03:02 Provider Notified: RADHA Initial Plan: FERNANDA JIMÉNEZ, CALL OB
[2017-08-12] MEDS ORDERED: OXYTOCIN 30 UNITS/LR 500 ML IV SCH ×3 (03:30→15:00)
[2017-08-12] MEDS ORDERED: CARBOPROST 250 MCG INJ IM PRN ×2 (03:30→18:00)
[2017-08-12] MEDS ORDERED: METHYLERGONOVINE 0.2 MG INJ IM PRN ×2 (03:30→18:00)
[2017-08-12] MEDS ORDERED: OXYCODONE/ASPIRIN (4.88/325) TAB PO PRN (03:30)
[2017-08-12] MEDS ORDERED: BUTORPHANOL 2 MG INJ IV PRN (03:30)
[2017-08-12] MEDS ORDERED: IBUPROFEN 600 MG TAB PO PRN (03:30)
[2017-08-12] MEDS ORDERED: LIDOCAINE 1% (MPF) 30 ML INJ INJ PRN (03:30)
[2017-08-12] MEDS ORDERED: OXYTOCIN 30 UNITS/LR 500 ML IV PRN ×2 (03:30→18:00)
[2017-08-12] MEDS ORDERED: MISOPROSTOL 200 MCG TAB PR PRN ×2 (03:30→18:00)
[2017-08-12] MEDS: LACTATED RINGER'S 1,000 ML IV SCH ×3 (03:37→14:49)
[2017-08-12 04:01] LABS: INR 0.93; PROTIME 12.6 Sec (11.9-14.9)
[2017-08-12 04:02] LABS: PARTIAL THROMBOPLASTIN TIME 25.4 Sec (25.0-35.0)
[2017-08-12] MEDS ORDERED: FENTAnyl 2MCG/ML-ROPIV 0.2% 100 ML ONE ×2 (04:04→09:32)
[2017-08-12 04:09] LABS: BASOPHILS % 0.3 % (0.0-2.0); EOSINOPHILS # 0.1 10^3/ul (0.0-0.5); EOSINOPHILS % 0.6 % (0.0-7.0); HEMATOCRIT 32.3 % (37.0-47.0); HEMOGLOBIN 10.5 g/dl (12.0-16.0); LYMPHOCYTES # 1.5 10^3/ul (0.8-2.9); LYMPHOCYTES % 13.5 % (15.0-51.0); MEAN CORPUSCULAR HEMOGLOBIN 25.7 pg (29.0-33.0); MEAN CORPUSCULAR HGB CONC 32.5 g/dl (32.0-37.0); MEAN CORPUSCULAR VOLUME 79.2 fl (82.0-101.0); MEAN PLATELET VOLUME 10.5 fl (7.4-10.4); MONOCYTE # 0.6 10^3/ul (0.3-0.9); MONOCYTES % 5.6 % (0.0-11.0); NEUTROPHIL # 8.7 10^3/ul (1.6-7.5); NEUTROPHILS % 79.6 % (39.0-77.0); PLATELET COUNT 284 10^3/UL (140-415); RED BLOOD COUNT 4.08 10^6/ul (4.20-5.40); RED CELL DISTRIBUTION WIDTH 16.7 % (11.5-14.5)
[2017-08-12 08:20] VITALS: BP 102/59; PULSE 83; RESP 20
[2017-08-12] MEDS ORDERED: ONDANSETRON 4 MG INJ ONE (08:45)
[2017-08-12] MEDS ORDERED: ONDANSETRON 4 MG INJ IV PRN ×2 (09:00→10:00)
[2017-08-12] MEDS ORDERED: NALOXONE (0.4 MG/ML) INJ IV PRN (10:00)
[2017-08-12] MEDS ORDERED: TRIMETHOBENZAMIDE 100 MG/ML VIAL IM PRN (10:00)
[2017-08-12] MEDS ORDERED: DIPHENHYDRAMINE 50 MG INJ IV PRN (10:00)
[2017-08-12] MEDS ORDERED: FENTAnyl 2MCG/ML-ROPIV 0.2% 100 ML BAG EPI SCH (10:00)
--- NOTE | 2017-08-12 15:54 | LDN ---
Date/Time of Note Date/Time of Note DATE: 08/12/17 TIME: 15:52 Delivery Summary Normal spontaneous vaginal delivery of a viable over intact perineum Weeks of Gestation 38 weeks and 5 days Placenta Delivered: Spontaneously, Intact & Complete Meconium: none Episiotomy: No Perineal laceration: 1 Laceration repair: Superficial perineal laceration was repaired using 3-0 chromic station and SH needle in single layer Anesthesia type: Epidural Estimated blood loss: 300 Sponge & Needle done & correct: Yes All needle counts correct: Yes Any foreign bodies felt in the: No Problems: Infant Delivery Information Sex Infant Sex: male Apgars 1 Minute: 9 5 Minute: 9 Suctioning Nose & mouth suctioned at klaudia: Yes Delee suction performed: No Umbilical Cord Umbilical cord with: 3 Vessels Cord presentations: nuchal cord Nuchal cord present X: 1 Cord Blood was obtained: Yes Mother & Baby Disposition Disposition Mom & Baby to Maternity; Good: Yes (Mother and baby were recovering in good condition) Mom transferred to: Other (Maternity) Baby to NICU: No ESTRADA MAC MD Aug 12, 2017 15:54
[2017-08-12] MEDS ORDERED: LACTATED RINGER'S 1,000 ML IV* SCH (17:45)
[2017-08-12 17:50] VITALS: BP 119/72; PULSE 84; RESP 18
[2017-08-12] MEDS ORDERED: ZOLPIDEM 5 MG TAB PO PRN (18:00)
[2017-08-12] MEDS ORDERED: BENZOCAINE 20% 56 ML SPRAY TOP PRN (18:00)
[2017-08-12] MEDS ORDERED: DIBUCAINE 1% 30 GM OINT PR PRN (18:00)
[2017-08-12] MEDS: IBUPROFEN 600 MG TAB PO SCH ×2 (18:00→23:43)
[2017-08-12] MEDS ORDERED: HYDROCODONE/APAP (5/325) TAB PO PRN ×2 (18:00)
[2017-08-12] MEDS ORDERED: LANOLIN 7 GM TUBE TOP PRN (18:00)
[2017-08-12] MEDS: WITCH HAZEL/GLYCERIN PAD PR PRN (18:41)
[2017-08-12] MEDS: CEPHALEXIN 500 MG CAP PO SCH ×2 (18:41→23:43)
[2017-08-12 20:00] VITALS: BP 125/83; PULSE 100; RESP 22
[2017-08-12] MEDS: SENNA/DOCUSATE NA (8.6MG/50MG) TAB PO SCH (20:36)
[2017-08-12] MEDS: MAGNESIUM HYDROXIDE 30ML CUP PO SCH (20:36)
[2017-08-13] VITALS: BP 114/57; PULSE 100; RESP 18
[2017-08-13 04:00] VITALS: BP 111/68; PULSE 74; RESP 19
[2017-08-13] MEDS: IBUPROFEN 600 MG TAB PO SCH ×3 (06:14→18:11)
[2017-08-13] MEDS: CEPHALEXIN 500 MG CAP PO SCH ×3 (06:14→18:11)
[2017-08-13 08:10] VITALS: BP 107/55; PULSE 78; RESP 17
[2017-08-13 08:48] LABS: BASOPHILS % 0.2 % (0.0-2.0); EOSINOPHILS # 0.1 10^3/ul (0.0-0.5); EOSINOPHILS % 1.4 % (0.0-7.0); HEMATOCRIT 30.4 % (37.0-47.0); HEMOGLOBIN 9.6 g/dl (12.0-16.0); LYMPHOCYTES # 2.1 10^3/ul (0.8-2.9); LYMPHOCYTES % 20.6 % (15.0-51.0); MEAN CORPUSCULAR HEMOGLOBIN 25.7 pg (29.0-33.0); MEAN CORPUSCULAR HGB CONC 31.6 g/dl (32.0-37.0); MEAN CORPUSCULAR VOLUME 81.3 fl (82.0-101.0); MEAN PLATELET VOLUME 10.4 fl (7.4-10.4); MONOCYTE # 0.6 10^3/ul (0.3-0.9); MONOCYTES % 5.7 % (0.0-11.0); NEUTROPHIL # 7.2 10^3/ul (1.6-7.5); NEUTROPHILS % 71.8 % (39.0-77.0); PLATELET COUNT 263 10^3/UL (140-415); RED BLOOD COUNT 3.74 10^6/ul (4.20-5.40); RED CELL DISTRIBUTION WIDTH 16.9 % (11.5-14.5)
[2017-08-13] MEDS: MAGNESIUM HYDROXIDE 30ML CUP PO SCH ×2 (09:00→21:00)
[2017-08-13] MEDS: SENNA/DOCUSATE NA (8.6MG/50MG) TAB PO SCH ×2 (09:00→21:54)
[2017-08-13 16:00] VITALS: BP 106/61; PULSE 97; RESP 18
--- NOTE | 2017-08-13 16:49 | DS ---
Date/Time of Note Date/Time of Note Home today or next day DATE: 08/13/17 TIME: 16:48 Obstetrical Discharge Record Final Diagnosis Final Diagnosis: Term delivered Other Final Diagnosis Status post vaginal delivery Vaginal Delivery Obstetrical Delivery: Spontaneous, Laceration, Repaired Complications Augmentation: Yes Condition on Discharge Physical Assessment Last Vitals: See nurse's notes Voiding: Yes Bowel Movement: Yes Breast: Soft, non-tender, Filling Fundus: Firm Abdomen and Incision: Abdomen is soft and not distended bowel sounds present Fundus is firm level of bellybutton Episiotomy: Perineum is healing and is clean Calf Tenderness: No Patient Condition: Good ESTRADA MAC MD Aug 13, 2017 16:49
[2017-08-13] MEDS ORDERED: IBUP-1542 PO (16:51)
--- NOTE | 2017-08-13 16:51 | PD.PPDC ---
[employer] Discharge Instruction Provider Information Physician Information 21-year-old female had vaginal delivery Diagnosis Final Diagnosis: Status post vaginal delivery Condition Patient Condition: Good Diet Diet: Resume Regular Diet Activity/Restrictions Activity: Normal Activity May Shower Restrictions: Nothing in the Vagina Return to Work or School: Oct 02, 2017 Follow-up Follow-up with Physician: 4, Week/Weeks (In clinic) Return to clinic for OB Instructions: Breast Tenderness Depression Comment: Pelvic rest for 6 weeks ESTRADA MAC MD Aug 13, 2017 16:50
[2017-08-13 19:50] VITALS: BP 113/65; PULSE 83; RESP 20
[2017-08-13] MEDS: WITCH HAZEL/GLYCERIN PAD PR PRN (22:46)
[2017-08-14] MEDS: CEPHALEXIN 500 MG CAP PO SCH ×2 (00:41→06:10)
[2017-08-14] MEDS: IBUPROFEN 600 MG TAB PO SCH ×2 (00:41→06:10)
[2017-08-14 04:30] VITALS: BP 96/55; PULSE 66; RESP 20
[2017-08-14 08:10] VITALS: BP 114/76; PULSE 73; RESP 20
[2017-08-14] MEDS ORDERED: DIPHTH/TET/ACEL PERTUSS (ADULT) 0.5 ML VIAL IM* ONE (09:00)
[2017-08-14] MEDS: SENNA/DOCUSATE NA (8.6MG/50MG) TAB PO SCH (09:00)
[2017-08-14] MEDS: MAGNESIUM HYDROXIDE 30ML CUP PO SCH (09:00)
[2017-08-14] MEDS ORDERED: MEASLES,MUMPS,RUBELLA VACCINE INJ SC* ONE (09:00)
[2017-08-14] MEDS ORDERED: VARICELLA VACCINE LIVE/PF 1,350 UNIT/0.5 ML ML SC* ONE (09:00)
== END 2017-08-14 12:38 | disposition home or self-care (01) | DRG 775 ==
LOC: OBT 02:48 → L-D 02:49 → OBT 03:06 → L-D 03:10 → PP1 18:15
PROVIDERS: ADMIT Obstetrics & Gynecology; ATTEND Obstetrics & Gynecology
PROC: 10E0XZZ Delivery of Products of Conception, External Approach (ICD-10-PCS; principal; 2017-08-12)
PROC: 0HQ9XZZ Repair Perineum Skin, External Approach (ICD-10-PCS; 2017-08-12)
PROC: 4A1HXCZ Monitoring of Products of Conception, Cardiac Rate, External Approach (ICD-10-PCS; 2017-08-12)
DX: O70.0 First degree perineal laceration during delivery (principal); Z37.0 Single live birth; Z3A.38 38 weeks gestation of pregnancy
CPT/HCPCS: 62319; 85025; 85610; 85730; 86592; 86900; 86901; 87340; 90715; 90716; G0463; J2405; J2590; J3010; J7120

== ENCOUNTER 2017-08-29 08:38 | Emergency (ER) | END 2017-08-29 12:53 | disposition home or self-care (01) ==